=== PATIENT | female | born 1960 | race Caucasian/White ===

== ENCOUNTER 2018-11-21 16:18 | Inpatient (IN) ==
[2018-11-21 18:05] LABS: BASO# 0.03 X1000 (0.0-0.2); BASO% 0.3 % (0.0-0.8); EOS# 0.01 X1000 (0.0-0.7); EOS% 0.1 % (0.0-10.0); HEMATOCRIT 33.9 % (37.0-47.0); HEMOGLOBIN 10.4 g/dL (12.0-16.0); IMM GRAN# 0.02 X1000 (0.0-0.04); IMM GRAN% 0.2 % (0.0-0.5); LYMPH# 1.49 X1000 (1.2-3.4); LYMPH% 12.9 % (20.5-51.1); MCH 25.2 PG (27-31); MCHC 30.7 g/dL (33-37); MCV 82.1 FL (81-99); MONO# 0.54 X1000 (0.11-0.59); MONO% 4.7 % (1.7-9.3); MPV 10.7 FL (7.4-10.4); NEUT# 9.45 X1000 (1.4-6.5); NEUT% 81.8 % (42.2-75.2); PLT 342 X1000 (130-400); RBC 4.13 XMIL (4.2-5.4); RDW 15.2 % (11.5-14.5); WBC 11.54 X1000 (4.8-10.8)
[2018-11-21 18:14] LABS: BILIRUBIN URINE NEGATIVE (NEGATIVE); BLOOD URINE 1+ (NEGATIVE); CLARITY CLEAR (CLEAR); COLOR YELLOW; KETONE URINE 3+(Large) mg/dL (NEGATIVE); LEUKOCYTES URINE TRACE (NEGATIVE); NITRITE URINE NEGATIVE (NEGATIVE); PROTEIN URINE TRACE mg/dL (NEGATIVE); SP GRAVITY URINE 1.015; UROBILINOGEN URINE NORMAL
[2018-11-21 18:21] LABS: URINE SOURCE CLEAN CATCH
[2018-11-21 18:22] LABS: URINE BACTERIA 1+ /HFP; URINE CAST NONE SEEN /LPF; URINE CRYSTAL NONE SEEN /HPF; URINE EPITHELIAL CELLS >10 /HPF (<10); URINE RBC <10 /HPF (<10); URINE SMALL ROUND CELLS TRANSITIONAL PRESENT; URINE YEAST NONE SEEN /HPF
[2018-11-21 18:33] LABS: AGAP 23; ALBUMIN 4.5 g/dL (3.5-5.0); ALKALINE PHOSPHATASE 83 U/L (32-104); BUN 28 mg/dL (8-22); CALCIUM 10.3 mg/dL (8.8-10.2); CHLORIDE 99 mmol/L (98-107); COSMO 293; CREATININE 1.3 mg/dL (0.5-0.9); ESTIMATED GFR 42; GOT 15 U/L (10-30); GPT 16 U/L (10-36); POTASSIUM 5.6 mmol/L (3.5-5.1); SODIUM 132 mmol/L (136-145); TCO2 10 mmol/L (25-35); TOTAL BILIRUBIN < 0.15 mg/dL (0.20-1.00); TOTAL PROTEIN 8.1 g/dL (6.3-8.3)
[2018-11-21 18:35] LABS: GLUCOSE 518 mg/dL (70-104)
[2018-11-21] MEDS ORDERED: NS 1,000 ML IV ONE ×2 (19:19→20:43)
[2018-11-21] MEDS ORDERED: HUMULIN R IV ONE (19:27)
[2018-11-21] MEDS ORDERED: HUMULIN R (PARKWAY) 100 UNITS in NS 100 ML IV SCH (19:30)
[2018-11-21] MEDS ORDERED: NS 100 ML ONE (19:32)
[2018-11-21] MEDS ORDERED: HUMULIN R (PARKWAY) IV ONE (19:40)
[2018-11-21 20:22] LABS: BE -23.1 mmoll (-3.0-3.0); BLOOD TYPE ARTERIAL; HCO3-(ACT) 6.9 mmoll (20.0-26.0); METHB 1.1 % (0.0-1.5); O2(CT) 14.5 mL/dL (15.0-23.0); O2HB 95.5 % (95.0-99.0); PCO2(98.6) 22 mmHg (35-45); PO2(98.6) 108 mmHg (60-100); SAMPLE BLOOD; SAO2 97.5 % (95.0-100.0); THB 10.7 g/dL (11.5-17.4)
[2018-11-21 20:25] LABS: pH(98.6) 7.04 (7.35-7.45)
[2018-11-21 20:26] LABS: ALLEN TEST YES; MODALITY ROOM AIR
[2018-11-21] MEDS: HUMULIN R (PARKWAY) IV SCH ×2 (21:16→22:06)
[2018-11-21] MEDS ORDERED: ZOFRAN IV PRN (22:45)
[2018-11-21] MEDS ORDERED: MAGNESIUM SULFATE 2 GM/S.W.I. 2 GM/50 ML IVPB IV PRN (22:45)
[2018-11-21] MEDS ORDERED: POTASSIUM CHLORIDE 20% LIQUID PO PRN (22:45)
[2018-11-21] MEDS ORDERED: SODIUM PHOSPHATE 30 MMOL in D5W 250 ML IV PRN (22:45)
[2018-11-21] MEDS ORDERED: D50W SYRINGE IV PRN (22:45)
[2018-11-21] MEDS ORDERED: HUMULIN R 100 UNIT in NS 99 ML IV SCH (22:45)
[2018-11-21] MEDS ORDERED: TYLENOL PO PRN (22:45)
[2018-11-21] MEDS ORDERED: POTASSIUM CHLORIDE 20 MEQ/SWI 20 MEQ/100 ML IVPB IV PRN (22:45)
[2018-11-21] MEDS: NS 1,000 ML IV SCH (22:50)
[2018-11-21 23:27] LABS: CALCIUM 9.7 mg/dL (8.8-10.2); CREATININE 1.2 mg/dL (0.5-0.9); MAGNESIUM 1.7 mg/dL (1.5-2.7); PHOSPHORUS 3.3 mg/dL (2.7-4.5); POTASSIUM 4.5 mmol/L (3.5-5.1)
[2018-11-21] MEDS ORDERED: POTASSIUM CHLORIDE 40 MEQ/SWI 40 MEQ/100 ML IVPB IV PRN (23:45)
[2018-11-21] MEDS: POTASSIUM CHLORIDE 10% LIQUID PO PRN (23:55)
[2018-11-22] MEDS: D5 NS 1,000 ML IV SCH ×3 (00:59→16:50)
--- NOTE | 2018-11-22 01:13 | PROVIDER DOCUMENTATION ---
This chart was entered by Holli Beltran Scribe, acting as scribe for Martinez Do CRNP. HPI-General Adult - General Chief Complaint: High Blood Sugar Stated Complaint: HIGH BLOOD SUGAR Time Seen by Provider: 11/21/18 19:21 Source: patient Allergies/Adverse Reactions: Patient Allergies Allergy/AdvReac Type Severity Reaction Status Date / Time No Known Allergies Allergy Verified 11/21/18 17:11 Home Medications: Home Medication List Medication Instructions Recorded Confirmed Last Taken Type Aspirin 81 mg PO DAILY 12/13/15 01/22/17 01/22/17 History Clobazam [Onfi] 10 mg PO BID 12/13/15 01/22/17 01/22/17 History Lacosamide [Vimpat] 100 mg PO DAILY 12/13/15 01/22/17 01/22/17 History Levothyroxine [Synthroid] 88 mcg PO DAILY 12/13/15 01/22/17 01/22/17 History Insulin Glargine [Lantus] 20 units SQ HS 12/27/16 01/22/17 01/22/17 History Metformin HCl 1,000 mg PO BID 12/27/16 01/22/17 01/22/17 History Doxycycline 100 mg PO BID #14 capsule 01/22/17 Unknown Rx Hydrochlorothiazide 25 mg PO DAILY 01/22/17 01/22/17 01/22/17 History Levetiracetam 1,000 mg PO DAILY 01/22/17 01/22/17 01/22/17 History Losartan Potassium 50 mg PO DAILY 01/22/17 01/22/17 01/22/17 History Metronidazole [Flagyl] 500 mg PO TID #21 tablet 01/22/17 Unknown Rx Valacyclovir HCl [Valacyclovir] 1,000 mg PO TID #30 tablet 01/22/17 Unknown Rx Ciprofloxacin HCl [Cipro] 500 mg PO BID #14 tablet 05/06/17 Unknown Rx Phenazopyridine HCl [Pyridium] 100 mg PO TID #6 tablet 05/06/17 Unknown Rx Amoxicillin/Pot Clavulanate 875 mg PO Q12HR 10 Days #20 tab 08/12/18 Unknown Rx [Augmentin] - History of Present Illness -Gen Adult Nature of Presenting Problems: pt is 58 yr old female presenting with 1 day complaint of elevated BGL, headache, dry mouth. pt hx of IDDM uses insulin pump, unable to get blood sugar down today. Location of Pain/Injury: reports: head Pain Radiation: reports: no radiation Quality of Pain: reports: aching Severity: reports: mild Onset/Duration: reports: this morning Timing: reports: still present Context/Activities at Onset: reports: light activity Modifying Factors: improves with: other medication (insulin, metformin without relief) Associated Symptoms: reports: headaches, other (dry mouth, elevated BGL). d enies: dizziness, fever/chills Similar Symptoms Previously?: Yes Recently seen or treated by another doctor?: No Review of Systems - Adult - REVIEW OF SYSTEMS - ADULT Constitutional: reports: [place]. denies: chills, fever Eyes: reports: no symptoms reported Ears, Nose, Mouth & Throat: denies: ear pain, sinus problem, throat pain Cardiovascular: denies: chest pain, palpitations, syncope Respiratory: denies: cough, shortness of breath Gastrointestinal: denies: abdominal pain, diarrhea, nausea, vomiting Genitourinary: reports: no symptoms reported Musculoskeletal: denies: back pain, muscle aches, neck pain Integumentary: reports: no symptoms reported Neurological: reports: headache/migraines. denies: dizziness/vertigo Psychiatric: reports: no symptoms reported Endocrine: reports: increased thirst, polyuria, other (dry mouth) Hematologic/Lymphatic: reports: no symptoms reported Allergic/Immunologic: reports: no symptoms reported All Other Systems: Reviewed and Negative Past History - Adult - PAST MEDICAL HISTORY-ADULT Review of Records: reports: Old Records Reviewed, Nursing Assessment Review, Medications Reviewed, Social history reviewed & non-contributory. Major Childhood Illnesses: reports: denies history Cardiovascular: reports: HTN, hyperlipidemia Respiratory: reports: denies history Gastrointestinal: reports: denies history Obstetrical/Gynecological: reports: denies history Genitourinary: reports: denies history Musculoskeletal: reports: denies history Neurological: reports: Seizures/Epilepsy Endocrine/Immune: reports: Diabetes, thyroid disorder Other Conditions: reports: denies history - PRIOR SURGERIES/PROCEDURES Surgical/Procedure History: reports: hysterectomy, other (brain) - IMMUNIZATION STATUS Childhood Immunizations: See Nurse Assessment Flu Vaccine: See Nurse Assessment - FAMILY HISTORY Family History: reviewed, not pertinent - SOCIAL HISTORY Smoking: denies Substance Use: denies Living Situation: family Physical Exam-General - PHYSICAL EXAM-ADULT Initial Vital Signs Reviewed: Yes - CONSTITUTIONAL General Appearance: appears well, alert, no apparent distress - EYES Eyes: PERRL/EOMI - HEAD, EARS, NOSE, MOUTH & THROAT HENMT: normocephalic/atraumatic, other (dry oral mucosa) - NECK Neck: non-tender, full range of motion, supple, normal inspection - RESPIRATORY Respiratory: chest non-tender, lungs clear, normal breath sounds - CARDIOVASCULAR Cardiovascular: normal peripheral pulses, regular rate, rhythm, no edema - GASTROINTESTINAL (ABDOMEN) Abdominal Exam: normal bowel sounds, non tender, soft - LYMPHATIC Lymphatic: no adenopathy - MUSCULOSKELETAL Back Exam: normal inspection, no CVA tenderness, no vertebral tenderness Extremity: normal range of motion, non-tender, normal gait, normal inspection - SKIN Integumentary: normal color, normal turgor, warm/dry - NEUROLOGIC Neurologic: grossly normal, no motor/sensory deficits - PSYCHIATRIC Psych/Mental Status: normal mood/affect Progress - PLAN OF CARE/RESULTS Progress/Plan/Lab Results: Vital Signs - 8 hr 11/21/18 16:48 Temperature 98.3 F Pulse Rate 110 H Respiratory Rate 20 Blood Pressure 125/76 O2 Sat by Pulse Oximetry 100 Laboratory Results - last 24 hr 11/21/18 11/21/18 11/21/18 16:53 17:32 17:45 WBC 11.54 H RBC 4.13 L Hgb 10.4 L Hct 33.9 L MCV 82.1 MCH 25.2 L MCHC 30.7 L RDW Std Deviation 15.2 H Plt Count 342 MPV 10.7 H Immature Gran % (Auto) 0.2 Neut % (Auto) 81.8 H Lymph % (Auto) 12.9 L Cros[place] % (Auto) 4.7 Eos % (Auto) 0.1 Baso % (Auto) 0.3 Immature Gran # (Auto) 0.02 Neut # (Auto) 9.45 H Lymph # (Auto) 1.49 Crosby # (Auto) 0.54 Eos # (Auto) 0.01 Baso # (Auto) 0.03 Sodium Potassium Chloride Carbon Dioxide Anion Gap BUN Creatinine Estimated GFR/1.73 m2 BUN/Creatinine Ratio Glucose POC Glucose 495 H D Calculated Osmolality Calcium Total Bilirubin AST ALT Alkaline Phosphatase Total Protein Albumin Globulin Albumin/Globulin Ratio Urine Source CLEAN CATCH Urine Color YELLOW Urine Clarity CLEAR Urine pH 5.0 Ur Specific [place] 1.015 Urine Protein TRACE A Urine Ketones 3+(Large) A Urine Blood 1+ A Urine Nitrite NEGATIVE Urine Bilirubin NEGATIVE Urine Urobilinogen NORMAL Urine Microscopic RBC <10 Urine WBC TRACE A Urine Microscopic WBC 10-20 A Ur Epithelial Cells >10 A Urine Crystals NONE SEEN Small Round Cells TRANSITIONAL PRESENT Urine Bacteria 1+ Urine Casts NONE SEEN Urine Yeast NONE SEEN Urine Glucose 3+(500 mg/dL) A Acetone Level 11/21/18 11/21/18 11/21/18 17:45 17:45 20:01 WBC RBC Hgb Hct MCV MCH MCHC RDW Std Deviation Plt Count MPV Immature Gran % (Auto) Neut % (Auto) Lymph % (Auto) Cros[place] % (Auto) Eos % (Auto) Baso % (Auto) Immature Gran # (Auto) Neut # (Auto) Lymph # (Auto) [place] # (Auto) Eos # (Auto) Baso # (Auto) Sodium 132 L Potassium 5.6 H Chloride 99 Carbon Dioxide 10 L Anion Gap 23 BUN 28 H Creatinine 1.3 H Estimated GFR/1.73 m2 42 BUN/Creatinine Ratio 22 Glucose 518 H* POC Glucose 364 H Calculated Osmolality 293 Calcium 10.3 H Total Bilirubin < 0.15 L AST 15 ALT 16 Alkaline Phosphatase 83 Total Protein 8.1 Albumin 4.5 Globulin 4.0 Albumin/Globulin Ratio 1.0 Urine Source Urine Color Urine Clarity Urine pH Ur Specific [place] Urine Protein Urine Ketones Urine Blood Urine Nitrite Urine Bilirubin Urine Urobilinogen Urine Microscopic RBC Urine WBC Urine Microscopic WBC Ur Epithelial Cells Urine Crystals Small Round Cells Urine Bacteria Urine Casts Urine Yeast Urine Glucose Acetone Level SMALL A Orders Category Date Time Status FSBS [Finger Stick Blood Sugar (ED)] DIRECTED Care 11/21/18 17:13 Completed FSBS/Accucheck Result RTQ1H Care 11/21/18 19:52 Active ACETONE SERUM [CHEM] Stat Lab 11/21/18 17:45 Completed Blood Gas [ABG] [RESP] Routine Lab 11/21/18 20:01 Ordered CBC WITH DIFF [HEME] Stat Lab 11/21/18 17:45 Completed CMP [COMPREHENSIVE METABOLIC PANEL] [CHEM] Stat Lab 11/21/18 17:45 Completed URINE CULTURE [RM] Routine Lab 11/21/18 18:22 Ordered ua [URINALYSIS PL W/POSS RFLX CULT] [URINALYSIS] Stat Lab 11/21/18 17:32 Completed 0.9% Sodium Chloride Inj [Ns] 1,000 ml Med 11/21/18 19:19 Active IV 999 mls/hr 0.9% Sodium Chloride Inj [Ns] 100 ml Med 11/21/18 19:32 Discontinued .ROUTE As directed Insulin Human Regular ([place] [Humulin R ([place])] Med 11/21/18 19:40 Discontinued See Protocol IV NOW ONE Insulin Human Regular [Humulin R] Med 11/21/18 19:27 Discontinued 6 unit IV NOW ONE Result Diagrams: 11/21/18 17:45 11/21/18 17:45 - CONSULTS/PCP/HOSPITALIST Notification #1 *Consult/PCP/Hospitalist*: Dr Sanchez Time Discussed: 20:40 Reason/Comments: plan of care for pt admit Consult Disposition: Admit Departure - Departure Date of Disposition Decision: 11/21/18 Time of Disposition Decision: 20:41 DIAGNOSIS: DKA (diabetic ketoacidosis) Disposition: ADMITTED INPATIENT 09 Certified Medical Emergency: Emergent Condition: Stable Referrals and Follow-Ups: Edwin Brady MD [Primary Care Provider] - - Critical Care Note This patient required my direct & personal management of CC.: Yes Total Time (mins): 31 Critical Care Statement: This patient required my direct personal management to treat or rule out processes, the absence of which, could potentiallly result in sudden, clinically significant life or limb threatening deterioration. Attestation - Physician/ JRAETH Attestation Patient care was provided by Advanced Practice Provider:: Yes Advanced Practice Provider:: Martinez Do Advanced Practice Provider documentation review:: The Mid-level provider documentation, treatment plan and medical decision making was reviewed by the physician who agrees with all treatment and medical decision making by the [facility]. The physician spent face to face time with patient:: No Advanced Practice Provider documentation review:: Supervising physician onsite and consulted in the evaluation and care of this patient. The physician did not have a face to face encounter with the patient. This chart was documented by the indicated scribe, (Holli Beltran Scribe) and accurately reflects the services I performed and decisions made by me, Martinez Do CRNP, as attested by the provider's signature.
[2018-11-22 01:54] LABS: CALCIUM 9.6 mg/dL (8.8-10.2); CREATININE 1.1 mg/dL (0.5-0.9); MAGNESIUM 2.1 mg/dL (1.5-2.7); PHOSPHORUS 2.8 mg/dL (2.7-4.5); POTASSIUM 4.3 mmol/L (3.5-5.1)
[2018-11-22] MEDS: POTASSIUM CHLORIDE 10% LIQUID PO PRN (02:00)
[2018-11-22 04:55] LABS: BE -19.4 mmoll (-3.0-3.0); BLOOD TYPE ARTERIAL; HCO3-(ACT) 9.8 mmoll (20.0-26.0); METHB 1.2 % (0.0-1.5); O2(CT) 13.2 mL/dL (15.0-23.0); O2HB 94.5 % (95.0-99.0); PCO2(98.6) 20 mmHg (35-45); PO2(98.6) 155 mmHg (60-100); SAMPLE BLOOD; SAO2 98.8 % (95.0-100.0); THB 9.7 g/dL (11.5-17.4)
[2018-11-22 04:59] LABS: ALLEN TEST YES; MODALITY ROOM AIR; pH(98.6) 7.17 (7.35-7.45)
[2018-11-22 06:57] LABS: CALCIUM 9.2 mg/dL (8.8-10.2); CREATININE 1.1 mg/dL (0.5-0.9); MAGNESIUM 2.2 mg/dL (1.5-2.7); PHOSPHORUS 3.2 mg/dL (2.7-4.5); POTASSIUM 4.9 mmol/L (3.5-5.1)
[2018-11-22] MEDS: NS 1,000 ML IV SCH ×2 (07:13→15:04)
--- NOTE | 2018-11-22 08:37 | Diag Imaging Result Doc PS360 ---
EXAM: CHEST-PORTABLE INDICATION: dka TECHNIQUE: One view COMPARISON: None. FINDINGS: The lungs are grossly clear. There is no discrete pleural fluid collection or pneumothorax. The cardiomediastinal silhouette and central vasculature are grossly unremarkable. IMPRESSION: No evidence of acute pathology by plain radiograph. Electronically signed by Hong Sylvester 11/22/2018 8:34 AM
[2018-11-22 09:28] LABS: BASO# 0.02 X1000 (0.0-0.2); BASO% 0.1 % (0.0-0.8); EOS# 0.01 X1000 (0.0-0.7); EOS% 0.1 % (0.0-10.0); HEMATOCRIT 29.2 % (37.0-47.0); HEMOGLOBIN 9.4 g/dL (12.0-16.0); IMM GRAN# 0.05 X1000 (0.0-0.04); IMM GRAN% 0.4 % (0.0-0.5); LYMPH# 1.61 X1000 (1.2-3.4); MCH 26.2 PG (27-31); MCHC 32.2 g/dL (33-37); MCV 81.3 FL (81-99); MONO# 0.95 X1000 (0.11-0.59); MONO% 7.1 % (1.7-9.3); NEUT# 10.78 X1000 (1.4-6.5); NEUT% 80.3 % (42.2-75.2); PLT 313 X1000 (130-400); RBC 3.59 XMIL (4.2-5.4); RDW 15.3 % (11.5-14.5); WBC 13.42 X1000 (4.8-10.8)
[2018-11-22 09:37] LABS: HEMOGLOBIN A1C 6.8 % (4.8-6.0)
[2018-11-22 09:37] LABS: UR AMPHETAMINES QUAL NONE DETECTED (NONE DETECT); UR BARBITUATES QUAL NONE DETECTED (NONE DETECT)
[2018-11-22 09:38] LABS: UR BENZODIAZEPIN QUAL PRESUMPTIVE POSITIVE (NONE DETECT); UR CANNABINOIDS QUAL NONE DETECTED (NONE DETECT); UR COCAINE QUAL NONE DETECTED (NONE DETECT); UR METHADONE QUAL NONE DETECTED (NONE DETECT); UR METHAMPHETAMINE QUAL NONE DETECTED (NONE DETECT); UR OPIATES QUAL NONE DETECTED (NONE DETECT); UR OXYCODONE QUAL NONE DETECTED (NONE DETECT); UR PCP QUAL NONE DETECTED (NONE DETECT); UR PROPOXYPHENE QUAL NONE DETECTED (NONE DETECT); UR TCA QUAL NONE DETECTED (NONE DETECT)
[2018-11-22 09:45] LABS: CALCIUM 9.4 mg/dL (8.8-10.2); CREATININE 1.1 mg/dL (0.5-0.9); MAGNESIUM 2.2 mg/dL (1.5-2.7); PHOSPHORUS 1.6 mg/dL (2.7-4.5); POTASSIUM 3.9 mmol/L (3.5-5.1)
[2018-11-22 09:46] LABS: ACETAMINOPHEN < 1.2 ug/mL (10-30); SALICYLATES < 3.00 mg/dL (3-10)
[2018-11-22] MEDS ORDERED: POTASSIUM CHLORIDE 20 MEQ/SWI 20 MEQ/100 ML IVPB IV PRN (12:15)
--- NOTE | 2018-11-22 13:19 | EKG Report ---
Test Performed on : 11/22/2018 11:29:45 AM Test Reason : dka Blood Pressure : / mmHG Vent. Rate : 087 BPM Atrial Rate : 087 BPM P-R Int : 248 ms QRS Dur : 076 ms QT Int : 362 ms P-R-T Axes : 076 083 072 degrees QTc Int : 435 ms Sinus rhythm. with 1st degree AV block. Otherwise normal ECG No previous ECGs available Unconfirmed Result
[2018-11-22 13:59] LABS: CALCIUM 9.4 mg/dL (8.8-10.2); CREATININE 1.1 mg/dL (0.5-0.9); MAGNESIUM 2.2 mg/dL (1.5-2.7); PHOSPHORUS 1.6 mg/dL (2.7-4.5)
[2018-11-22 17:34] LABS: CALCIUM 9.3 mg/dL (8.8-10.2); CREATININE 1.1 mg/dL (0.5-0.9); MAGNESIUM 2.1 mg/dL (1.5-2.7); PHOSPHORUS 1.8 mg/dL (2.7-4.5); POTASSIUM 3.9 mmol/L (3.5-5.1)
--- NOTE | 2018-11-22 17:58 | HISTORY AND PHYSICAL ---
PRIMARY CARE PHYSICIAN: Dr. Brady. CHIEF COMPLAINT: Hyperglycemia. HISTORY OF PRESENT ILLNESS: Ms. Cameron is a 58-year-old female who presented to the ER yesterday evening with hyperglycemia. She was in her normal state of health, and around lunchtime she checked her blood sugar and it was noted to be greater than 500. She is on an insulin pump. She called her PCP, who instructed her to come to the ER. She reports not having any symptoms, no chest pain, shortness of breath, nausea, vomiting, fever, chills, dysuria, or diarrhea. When she got to the ER yesterday evening, she was noted to be in diabetic ketoacidosis with a significant bemtkedo-lwksa-[id number] acidosis. This was confirmed with a blood gas, which also revealed a lactic acid of 6.7. She was started on a DKA protocol and was admitted to the ICU. Again, no complaints with the exception of hyperglycemia, per the patient. PAST MEDICAL HISTORY: 1. Type 2 diabetes requiring insulin. 2. Significant seizure disorder. 3. Hypothyroidism. 4. Hyperlipidemia. PAST SURGICAL HISTORY: She has had exploratory brain surgery as well as implanted neurostimulator, and she has had a tubal ligation and hysterectomy. SOCIAL HISTORY: She denies tobacco, alcohol or drug use. FAMILY HISTORY: Noncontributory. REVIEW OF SYSTEMS: A 14-point review of systems was obtained and found to be negative with the exception of the HPI. ALLERGIES: No known drug allergies. HOME MEDICATIONS: Aspirin 81 mg daily, Neurontin 200 mg at bedtime, levetiracetam 1000 mg p.o. b.i.d., Metformin 1000 mg p.o. b.i.d., mirtazapine 15 mg daily, NovoLog insulin pump as directed, Clobazam 20 mg b.i.d., risperidone 1 daily, Crestor 40 mg daily, Synthroid 88 mcg daily, Vimpat 200 mg b.i.d. PHYSICAL EXAMINATION: VITAL SIGNS: Blood pressure is 107/62, heart rate 100, respiratory rate 13, O2 saturation 100% on room air, temperature 98.2. GENERAL: This is a frail, [id number] 58-year-old female lying in the hospital bed in no acute distress. NEUROLOGIC: She is awake, alert and oriented. Follows commands. No focal deficits. HEENT: Head is atraumatic and normocephalic. Pupils are equal, round and reactive to light. Oral mucosa is a bit dry. NECK: Trachea is midline. There is no JVD. CHEST: Clear to auscultation bilaterally. CV: Regular rate and rhythm. S1 and S2 is noted. GI: Soft, nondistended, nontender. Bowel sounds are active. EXTREMITIES: Trace edema. Pulses 1+ bilaterally. DIAGNOSTIC DATA: Chest x-ray is negative. WBCs 13.42, hemoglobin 9.4, hematocrit 29.2, platelet count 313. ABG on room air: pH of 7.17, CO2 of 20, O2 of 155, bicarbonate 9.8, lactate 0.7. Chemistry: Sodium 136, potassium 3.9, chloride 112. CO2 is 11, anion gap 13, BUN 21, creatinine 1.1, glucose 320. A1c is 6.8%. Phosphorus is 1.6, magnesium 2.2. UA does not show UTI. Toxicology is positive for benzodiazepines, acetone level small, acetaminophen and salicylate negative . ASSESSMENT/PLAN: 1. Diabetic ketoacidosis: Unclear as to etiology at this time, given her lack of symptomatology. Would have her look at her insulin pump. Will get the name of her janitor supervisor and get her to follow up with them regarding the function of the pump. In the meantime, she has been started on a diabetic ketoacidosis protocol. Continue insulin drip, fluids and electrolyte and volume management. Interestingly, her hemoglobin A1c was noted only to be 6.8%. 2. Seizure disorder: Stable. Continue home medications. 3. Anemia: Likely chronic disease related. The patient denies any blood loss. Will check iron studies and treat accordingly. 4. Hypothyroidism. Will check her TSH in the morning. Continue her home medications. Further recommendations to follow. Dictated by MERCEDES Mazariegos for Michael Sanchez MD cc: MERCEDES Mazariegos MD Bharat K. Vakharia, MD MTDD
[2018-11-22] MEDS: NEURONTIN PO SCH (21:04)
[2018-11-22] MEDS: KEPPRA PO SCH (21:04)
[2018-11-22] MEDS: VIMPAT PO SCH (21:05)
[2018-11-22 21:50] LABS: CALCIUM 9.2 mg/dL (8.8-10.2); CREATININE 1.1 mg/dL (0.5-0.9); MAGNESIUM 2.1 mg/dL (1.5-2.7); PHOSPHORUS 2.5 mg/dL (2.7-4.5); POTASSIUM 4.2 mmol/L (3.5-5.1)
[2018-11-23 02:30] LABS: CALCIUM 9.4 mg/dL (8.8-10.2); CREATININE 1.1 mg/dL (0.5-0.9); MAGNESIUM 2.1 mg/dL (1.5-2.7); POTASSIUM 4.3 mmol/L (3.5-5.1)
--- NOTE | 2018-11-23 02:50 | HISTORY AND PHYSICAL ---
ADDENDUM: Patient seen and examined by myself. Full note dictated and discussed with nurse practitioner. Patient denies any fevers, chills, cough, congestion, GI or issues. States that she simply checked her blood sugar and it was high. As it continued to raise she came to the ER. She was diagnosed with DKA. The patient does use an insulin pump at home. We will admit her to the hospital, treat in the usual fashion for DKA. We will hold her insulin pump for now and follow. cc: Michael Sanchez MD
[2018-11-23] MEDS ORDERED: SYNTHROID PO SCH ×2 (07:00→08:14)
[2018-11-23 07:02] LABS: BASO# 0.03 X1000 (0.0-0.2); BASO% 0.3 % (0.0-0.8); EOS# 0.02 X1000 (0.0-0.7); EOS% 0.2 % (0.0-10.0); HEMATOCRIT 29.3 % (37.0-47.0); HEMOGLOBIN 9.1 g/dL (12.0-16.0); IMM GRAN# 0.04 X1000 (0.0-0.04); IMM GRAN% 0.4 % (0.0-0.5); LYMPH% 19.4 % (20.5-51.1); MCH 25.3 PG (27-31); MCHC 31.1 g/dL (33-37); MCV 81.4 FL (81-99); MONO# 0.83 X1000 (0.11-0.59); MONO% 8.1 % (1.7-9.3); MPV 10.7 FL (7.4-10.4); NEUT# 7.38 X1000 (1.4-6.5); NEUT% 71.6 % (42.2-75.2); PLT 312 X1000 (130-400); RDW 15.7 % (11.5-14.5)
[2018-11-23] MEDS ORDERED: ZOFRAN IV PRN (07:19)
[2018-11-23] MEDS ORDERED: HUMULIN R (PARKWAY) 100 UNITS in NS 100 ML IV SCH (07:30)
[2018-11-23 07:35] LABS: CALCIUM 9.6 mg/dL (8.8-10.2); CREATININE 1.3 mg/dL (0.5-0.9); MAGNESIUM 2.1 mg/dL (1.5-2.7); POTASSIUM 3.9 mmol/L (3.5-5.1)
[2018-11-23] MEDS: ZOSYN 3.375 GM in NS 50 ML IV SCH ×3 (08:50→20:38)
[2018-11-23] MEDS ORDERED: INSULIN PEN NEEDLES ONE (09:29)
[2018-11-23] MEDS: RISPERDAL PO SCH (09:30)
[2018-11-23] MEDS: KEPPRA PO SCH ×2 (09:30→20:39)
[2018-11-23] MEDS: REMERON PO SCH (09:30)
[2018-11-23] MEDS: BASAGLAR SUBQ SCH ×2 (09:31→21:20)
[2018-11-23] MEDS: VIMPAT PO SCH ×2 (09:31→20:39)
[2018-11-23] MEDS: ASPIRIN PO SCH (09:31)
[2018-11-23] MEDS ORDERED: HUMALOG (PARKWAY) SUBQ SCH (13:15)
[2018-11-23] MEDS: HUMALOG (PARKWAY) SUBQ SCH ×3 (13:20→21:20)
[2018-11-23] MEDS: PATIENT'S OWN MED PO SCH ×3 (14:01→20:40)
[2018-11-23] MEDS: NEURONTIN PO SCH (20:39)
--- NOTE | 2018-11-23 21:51 | PROGRESS NOTE ---
DATE: 11/23/2018 SUBJECTIVE: Patient overall herself notes that she is feeling better. She did tolerate liquids last night. She is having no current nausea. No abdominal pain. OBJECTIVE: Temperature 98.7, pulse 80, BP 88/43 to 131/52.General: Patient currently is awake, alert. She is in no distress. She is pleasant to talk with but does not appear ill. HEENT: Normocephalic. Neck: Supple. Cardiovascular: Regular rate. Chest: Clear, nonlabored. No wheezing. Abdomen: Soft, nondistended, nontender. Extremities: Moves all extremities. ASSESSMENT: 1. Diabetic ketoacidosis. The patient's carbon dioxide actually increased. She was 10 and it increased to 16; currently, she is back down to 9. Last night, we did restart her insulin pump. It certainly begs the question that there is something wrong with her pump. She certainly may not be using it correctly and may not be using enough basal insulin. Regardless, we will again discontinue pump, place her on Lantus, and we will follow. Discussed with the patient that she may need to follow up outpatient with her software support engineer to evaluate her pump. 2. History of seizure disorder. 3. Anemia. 4. Hypothyroidism. cc: Michael Sanchez MD
[2018-11-24] MEDS: ZOSYN 3.375 GM in NS 50 ML IV SCH ×2 (01:24→09:01)
[2018-11-24] MEDS: HUMALOG (PARKWAY) SUBQ SCH ×2 (01:35→05:51)
[2018-11-24 08:44] LABS: HEMATOCRIT 30.8 % (37.0-47.0); HEMOGLOBIN 10.1 g/dL (12.0-16.0); MCH 25.8 PG (27-31); MCHC 32.8 g/dL (33-37); MCV 78.6 FL (81-99); MPV 10.2 FL (7.4-10.4); RBC 3.92 XMIL (4.2-5.4); RDW 15.6 % (11.5-14.5); WBC 6.04 X1000 (4.8-10.8)
[2018-11-24] MEDS: BASAGLAR SUBQ SCH (09:02)
[2018-11-24] MEDS: RISPERDAL PO SCH (09:02)
[2018-11-24] MEDS: KEPPRA PO SCH (09:02)
[2018-11-24] MEDS: VIMPAT PO SCH (09:02)
[2018-11-24] MEDS: ASPIRIN PO SCH (09:02)
[2018-11-24] MEDS: REMERON PO SCH (09:02)
[2018-11-24 09:07] LABS: ALBUMIN 3.5 g/dL (3.5-5.0); CALCIUM 9.1 mg/dL (8.8-10.2); CREATININE 1.2 mg/dL (0.5-0.9); POTASSIUM 3.5 mmol/L (3.5-5.1); TOTAL BILIRUBIN 0.2 mg/dL (0.20-1.00); TOTAL PROTEIN 6.9 g/dL (6.3-8.3)
[2018-11-24] MEDS: PATIENT'S OWN MED PO SCH (10:10)
[2018-11-24 12:15] VITALS: BP 111/70
--- NOTE | 2018-11-25 05:22 | DISCHARGE SUMMARY ---
ADMISSION DATE: 11/21/2018 DISCHARGE DATE: 11/24/2018 DISCHARGE DIAGNOSIS: 1. Diabetic ketoacidosis, resolved. 2. Diabetes with hyperglycemia in the hospital but with a very well controlled A1c at home. 3. Hyperthyroidism. 4. Hyperlipidemia. CONSULTATIONS: None. PROCEDURES: None. BRIEF HOSPITAL COURSE: The patient is a 58-year-old female who presented to the hospital in acute DKA with no instigating factor. She had no infection. She appears to be relatively compliant at home with an A1c at 6.1. She denies any change in her insulin. She was admitted to the hospital, placed on insulin drip. Quickly resolved and was then given her home insulin pump. Interestingly, after replacing her home insulin pump her carbon dioxide level dropped from 18 back down to 9, which is where it was on admission. We therefore stopped her insulin pump, place her back on subcutaneous Lantus and her A1c on discharge is back up to 16. DISPOSITION: Discussed with patient, I certainly feel though her pump may be malfunctioning. We will leave her pump off. We will continue Lantus until she can follow up outpatient with her bioinformatics programmer to evaluate her pump. She is currently having no nausea, vomiting, no abdominal pain and overall feels better. Greater than 30 minutes was spent in total discharge care. cc: Michael Sanchez MD
--- NOTE | 2018-11-25 08:12 | DISCHARGE SUMMARY ---
ADMISSION DATE: 11/21/2018 DISCHARGE DATE: 11/24/2018 ADMITTING DIAGNOSES: 1. Diabetic ketoacidosis. 2. Seizure disorder. 3. Anemia. 4. Hypothyroidism. DISCHARGE DIAGNOSES: 1. Diabetic ketoacidosis, resolved. 2. Seizure disorder. 3. Anemia. 4. Hypothyroidism. DIAGNOSTIC PROCEDURES AND FINDINGS: Chest x-ray on 11/22/2018 is negative exam. EKG on 11/22/2018 is sinus rhythm, first degree AV block, no acute ST or T abnormalities. HOSPITAL COURSE: Ms. Cameron is a 58-year-old female who presented with hyperglycemia. She has not had any complaints. She was checking her blood sugar, and it continued to be high. Once it reached 500, she called her PCP who instructed her to go to the ER for evaluation. In the ER, she was noted to be in DKA despite being on an insulin pump. She did not have any fever or chills, no chest pain. She was admitted for DKA protocol, and her blood sugar did improve nicely with an insulin drip. On day 2, we started back her insulin pump and stopped the insulin drip, and her blood sugar abe quickly which raised the question of functioning insulin pump. We subsequently stopped her insulin pump and started her on Lantus and will have her follow up with her PCP regarding functionality of her insulin pump. Her blood sugar did return back to acceptable levels. She does not have any symptoms or complaints, and she is now stable for discharge home. DISCHARGE MEDICATIONS: Synthroid 88 mcg daily, Vimpat 200 mg b.i.d., aspirin 81 mg daily, metformin 1000 mg p.o. b.i.d., Neurontin 200 mg at bedtime, risperidone 1 mg daily, Crestor 40 mg daily, Klonopin 20 mg b.i.d., Keppra 1000 mg p.o. b.i.d., mirtazapine 50 mg daily, Basaglar 10 units subcutaneously daily. DISCHARGE LABS: WBC is 6.04, hemoglobin 10.1, hematocrit 30.8, platelet count 314. Sodium is 137, potassium 3.5, chloride 110, CO2 is 18, anion gap is 9, BUN is 10, creatinine 1.2, glucose 288. Hemoglobin A1c is 6.8. Calcium 9.1. LFTs normal. DISCHARGE DIET: Diabetic. DISCHARGE ACTIVITY: Resume activity as tolerated. DISPOSITION AND OTHER DISCHARGE INSTRUCTIONS: The patient is discharged home to self care. She is to discontinue her insulin pump and continue Lantus as prescribed. She is to follow up with her starcher and tenter range feeder regarding her insulin pump. She is to return to the ER or call 911 for any complaints or concerns. All questions answered. Discharge time greater than 35 minutes. Dictated by MERCEDES Mazariegos for Michael Sanchez MD cc: MERCEDES Mazariegos MD Bharat K. Vakharia, MD
== END 2018-11-24 14:35 | disposition home or self-care (01) | DRG 919 ==
LOC: P.ED 16:18 → P.ICU 22:09
PROVIDERS: ATTEND Family Medicine
CPT/HCPCS: 71010; 71045; 80048; 80053; 80104; 80196; 80301; 80305; 80307; 80320; 80324; 80329; 81001; 82003; 82009; 82055; 82550; 82805; 82948; 83036; 83605; 83735; 84100; 84484; 85025; 85027; 87088; 93005; 96360; 99285; 99291; A9270; G0431; G0434; G0477; G0480; G6038; G6039; G6040; J1815; J2405; J2543; J3475; J3480; J7030; J7042; XXXXX

== ENCOUNTER 2019-08-23 01:28 | Inpatient (IN) ==
[2019-08-22 18:55] LABS: BASO# 0.02 X1000 (0.0-0.2); BASO% 0.3 % (0.0-0.8); EOS# 0.03 X1000 (0.0-0.7); EOS% 0.4 % (0.0-10.0); HEMATOCRIT 29.7 % (37.0-47.0); HEMOGLOBIN 9.4 g/dL (12.0-16.0); LYMPH# 1.64 X1000 (1.2-3.4); MCH 26.2 PG (27-31); MCHC 31.6 g/dL (33-37); MCV 82.7 FL (81-99); MONO# 0.77 X1000 (0.11-0.59); MONO% 10.3 % (1.7-9.3); MPV 10.1 FL (7.4-10.4); NEUT# 4.99 X1000 (1.4-6.5); PLT 252 X1000 (130-400); RBC 3.59 XMIL (4.2-5.4); RDW 16.1 % (11.5-14.5); WBC 7.45 X1000 (4.8-10.8)
[2019-08-22 19:22] LABS: URINE SOURCE CLEAN CATCH
--- NOTE | 2019-08-22 19:27 | Diag Imaging Result Doc PS360 ---
EXAM: CHEST-PORTABLE INDICATION: ABD PAIN TECHNIQUE: One view COMPARISON: 11/22/2018 FINDINGS: The lungs are grossly clear. There is no discrete pleural fluid collection or pneumothorax. The cardiomediastinal silhouette and central vasculature are grossly unremarkable. IMPRESSION: No evidence of acute pathology by plain radiograph. Electronically signed by Hong Sylvester 08/22/2019 7:25 PM
--- NOTE | 2019-08-22 19:27 | Diag Imaging Result Doc PS360 ---
EXAM: KUB ABDOMEN INDICATION: ABD PAIN TECHNIQUE: One view COMPARISON: None. FINDINGS: There is increased stool in the colon suggesting possible mild constipation. There is no obstructive bowel pattern. There is no evidence of large volume free abdominal gas. There is no evidence of organomegaly. IMPRESSION: Possible mild constipation. Electronically signed by Hong Sylvester 08/22/2019 7:24 PM
[2019-08-22 19:29] LABS: AMYLASE 269 U/L (20-200)
[2019-08-22 19:30] LABS: LIPASE 556 U/L (13-60)
[2019-08-22 19:30] LABS: BILIRUBIN URINE NEGATIVE (NEGATIVE); BLOOD URINE SMALL (NEGATIVE); COLOR YELLOW; GLUCOSE URINE >1000 mg/dL (NEGATIVE); KETONE URINE 40 mg/dL (NEGATIVE); LEUKOCYTES URINE MODERATE (NEGATIVE); NITRITE URINE POSITIVE (NEGATIVE); PROTEIN URINE 50 mg/dL (NEGATIVE); SP GRAVITY URINE 1.021; TURBIDITY URINE CLEAR (CLEAR); UROBILINOGEN URINE NORMAL (NORMAL)
[2019-08-22 19:31] LABS: UR EPITHELIAL CELLS <10 /HPF (<10); URINE BACTERIA 4+ /HPF; URINE RBC <10 /HPF (<10); URINE WBC TNTC /HPF (<10)
[2019-08-22 19:39] LABS: FREE T4 2.45 ng/dL (0.93-1.70)
[2019-08-22 19:40] LABS: ALB/GLOB RATIO 1.3; CALCIUM 9.8 mg/dL (8.8-10.2); CREATININE 1.5 mg/dL (0.5-0.9); MAGNESIUM 1.9 mg/dL (1.5-2.7); POTASSIUM 5.5 mmol/L (3.5-5.1); TOTAL BILIRUBIN 0.2 mg/dL (0.20-1.00)
[2019-08-22 19:40] LABS: ALLEN TEST YES; BE -9.5 mmoll (-3.0-3.0); BLOOD TYPE ARTERIAL; HCO3-(ACT) 17.5 mmoll (20.0-26.0); METHB 1.4 % (0.0-1.5); O2(CT) 13.8 mL/dL (15.0-23.0); O2HB 96.5 % (95.0-99.0); PCO2(98.6) 29 mmHg (35-45); PO2(98.6) 121 mmHg (60-100); SAMPLE BLOOD; SAO2 98.8 % (95.0-100.0); pH(98.6) 7.33 (7.35-7.45)
[2019-08-22 19:41] LABS: MODALITY ROOM AIR
--- NOTE | 2019-08-22 19:41 | HISTORY AND PHYSICAL ---
CHIEF COMPLAINT: Nausea vomiting and diarrhea. HISTORY OF PRESENT ILLNESS: Ms. Cameron is a 58-year-old white female patient complaining of vague abdominal pain. The patient does have nausea and vomiting going on for last 2 to 3 days. The patient vomited at least 3 to 4 times a day. She also had some diarrhea, vague abdominal pain. The patient was feeling weak. The patient is very vague and poor historian. No high-grade fever. The patient does have some chills. No nausea or vomiting. The patient had diarrhea. No blood or mucus in the stool. No abdominal distention. Denied dysuria or hematuria. No unusual cough, expectoration, or hemoptysis. No runny nose, stuffy nose. Dull headache. The patient had a unquantified weight loss. I evaluated her in the office. The patient was weak, feeling lethargic. I was concerned about her nausea vomiting and chance of hypoglycemia and I decided to admit the patient for further care. The patient does have insulin pump. No hypothyroidism. She denied any episode of major hypoglycemia. No recent seizure-type episode. No dysphagia or odynophagia. ALLERGIES: No known drug allergy. PAST MEDICAL HISTORY: Significant for hypothyroidism longstanding diabetes mellitus, hypothyroidism, seizure disorder, hypertension, gastritis, history suggestive of peripheral neuropathy, mood disorder, hyperlipidemia. PERSONAL HISTORY: Single. Nonsmoker. Denied alcohol or substance abuse. Independent in activities of daily living. FAMILY HISTORY: Noncontributory. REVIEW OF SYSTEMS: As per HPI. The patient does feel depressed at times. At times, mood swings. No leg swelling. The patient does have numbness and tingling in the feet patient is slow to response. PHYSICAL EXAMINATION: GENERAL: Middle-aged white female patient in mild distress. VITAL SIGNS: Blood pressure 118/72, pulse 76, respiration 18, temperature 98 degrees. SKIN: Senile turgor. HEENT: Head atraumatic, normocephalic. [place] conjunctivae. Anicteric sclerae. Extraocular muscle movement normal. Fundus cannot be penetrated. Good oral hygiene. No tonsillopharyngeal congestion or exudate. Ears and nose benign. NECK: Supple. No JVD, thyromegaly or lymphadenopathy. CHEST: Bibasilar crepitation. No rales. CARDIOVASCULAR: S1 and S2 heard. A 2/6 systolic murmur at the apex. No gallop or thrill. ABDOMEN: Soft, globular. Bowel sounds present. Mild tenderness in the epigastrium and left lower quadrant. No guarding or rigidity. EXTREMITIES: No cyanosis, clubbing. No acute DVT. MANAGER IMAGING: Alert, awake able to move all 4 limbs. MUSCULOSKELETAL: The patient was able to move all 4 limbs. CONSIDERATION: Patient admitted with nausea, vomiting, diarrhea, vague abdominal pain. Most likely gastroenteritis. Other consideration gastritis and gastroparesis, uncontrolled diabetes mellitus. Her other problems are hypothyroidism, hypertension mood disorder. PLAN: I will admit the patient. IV hydration. Close observation. We will check appropriate labs. Overall plan discussed at length with the patient. We will check appropriate lab and x- ray. Patient understood and agreed. cc: Edwin Brady MD
[2019-08-22 19:55] LABS: TSH 0.01 uIUmL (0.27-4.20)
[2019-08-22] MEDS: NS 1,000 ML IV SCH (19:59)
[2019-08-22] MEDS: HUMALOG SUBQ SCH (20:02)
[2019-08-22 20:24] LABS: HEMOGLOBIN A1C 7.7 % (4.8-6.0)
[2019-08-22] MEDS: PROTONIX IV SCH (20:48)
[2019-08-22] MEDS: ROCEPHIN 1 GM in NS 50 ML IV SCH (20:49)
[2019-08-22] MEDS: LOVENOX SUBQ SCH (20:49)
--- NOTE | 2019-08-22 21:43 | Diag Imaging Result Doc PS360 ---
EXAM: CT HEAD W/O CONTRAST INDICATION: ams TECHNIQUE: This exam was performed using automated exposure control, adjustment of mA or kV according to patient size, and/or use of iterative reconstruction technique. COMPARISON: None. FINDINGS: There are a few small chronic appearing lacunar infarcts versus Virchow-Lloyd spaces in the periventricular white matter of the right parietal lobe and the basal ganglia bilaterally. There is no definite acute infarct given the limited sensitivity of CT versus MRI. There is no discrete intracranial mass, mass effect, or intracranial hemorrhage. There are a few mo holes in the skull. Surrounding soft tissues and bony structures are essentially unremarkable, otherwise. IMPRESSION: Chronic appearing changes as described. No definite acute intracranial pathology by CT. Electronically signed by Hong Sylvester 08/22/2019 9:41 PM
[~2019-08-23 01:28] MED LIST: NS 1,000 ML IV SCH; ZOFRAN IV PRN
[2019-08-23] MEDS: NS 1,000 ML IV SCH ×3 (02:37→11:12)
[2019-08-23] MEDS ORDERED: HUMULIN R IV ONE ×2 (02:40→05:04)
[2019-08-23] MEDS ORDERED: D50W SYRINGE IV PRN (02:40)
[2019-08-23] MEDS ORDERED: NS 1,000 ML IV ONE (03:11)
[2019-08-23] MEDS: HUMULIN R 100 UNIT in NS 100 ML IV SCH (03:33)
[2019-08-23 04:25] LABS: CALCIUM 9.4 mg/dL (8.8-10.2); CREATININE 1.5 mg/dL (0.5-0.9); PHOSPHORUS 4.4 mg/dL (2.7-4.5); POTASSIUM 4.9 mmol/L (3.5-5.1)
[2019-08-23] MEDS ORDERED: VANCOMYCIN 1 GM/NS 1 GM/250 ML IVPB IV ONE (05:02)
[2019-08-23] MEDS: ZOSYN 3.375 GM in NS 50 ML IV SCH ×4 (05:15→22:38)
[2019-08-23] MEDS ORDERED: LEVOPHED 8 MG in D5 1/2 NS 250 ML IV SCH (07:00)
--- NOTE | 2019-08-23 07:16 | EKG Report ---
Test Performed on : 08/23/2019 04:07:50 AM Test Reason : NO EKG ORDER FOR MUSE Blood Pressure : / mmHG Vent. Rate : 134 BPM Atrial Rate : 134 BPM P-R Int : 162 ms QRS Dur : 080 ms QT Int : 378 ms P-R-T Axes : 074 088 067 degrees QTc Int : 564 ms Sinus tachycardia. Nonspecific ST abnormality Abnormal ECG When compared with ECG of 22-NOV-2018 11:29, [place] interval has decreased Vent. rate has increased BY [address] now depressed in Lateral leads Nonspecific T wave abnormality no longer evident in Anterior leads Confirmed by Sung FLORES, Bernabe Gomez ([id number]) on 08/26/2019 9:26:09 AM
--- NOTE | 2019-08-23 07:28 | Diag Imaging Result Doc PS360 ---
EXAM: CT ABDOMEN/PELVIS W/O CONTRAST 08/23/2019 HISTORY: DKA TECHNIQUE: This exam was performed using automated exposure control, adjustment of mA or kV according to patient size, and/or use of iterative reconstruction technique. COMMENT: There are no previous studies available for comparison. There is no evidence of acute disease in the visualized portion of the chest. There is a fair amount of motion artifact however. The spleen is not enlarged. The adrenal glands are within normal limits. The liver is grossly normal in appearance given the lack of contrast. There are no apparent gallstones. There is no evidence of nephrolithiasis or hydronephrosis. There is no evidence of bowel obstruction. There is gas distending portions of the colon and small bowel, there is no evidence of mural thickening or mucosal edema. There is some stool in the ascending colon. There is no evidence of appendicitis. The abdominal aorta is not distended. There are a few calcifications in the abdominal aorta. There is a fairly large amount of stool in the rectum. There is a Andrew catheter in the bladder. This is presumably responsible for the air-fluid level in the bladder. No free fluid is present. The regional skeleton appears to be intact. IMPRESSION: Mild constipation. No evidence of acute disease. Electronically signed by Michael Donnelly 08/23/2019 7:26 AM
--- NOTE | 2019-08-23 07:40 | PROGRESS NOTE ---
DATE: 08/23/2019 SUBJECTIVE: Ms. Cameron, a 58-year-old white female patient admitted with vague abdominal pain, nausea and vomiting. The patient was found to have a UTI. Overnight, her clinical condition deteriorated. Her blood sugar was very high. Patient found to have significant UTI. Her blood pressure dropped. The patient was started on insulin drip. The patient is very vague and poor historian. She was not taking her medication properly. The patient had CT scan of the brain done, which did reveal chronic appearing changes, but no acute intracranial pathology. No high- grade fever. She denied any chest pain. The patient did have nausea, vomiting, and diarrhea at home. No seizure-type episode. Her history part was very limited. OBJECTIVE: Vital Signs: Noted. This morning, the patient was tachycardic. Blood pressure was low. Dry oral mucosa. Neck: Supple. No JVD. Lungs: Bilateral good air entry present. Few basal crepitations. Cardiovascular System: S1 and S2. Tachycardia. Abdomen: Soft, mild diffuse tenderness. No guarding or rigidity. Extremities: No cyanosis, clubbing. No acute DVT. Central Nervous System: Alert, awake. Answering questions fair. Able to move all 4 limbs. DIAGNOSTIC STUDIES: Chest x-ray done on admission, no evidence of acute pathology. Abdominal x-ray revealed possible mild constipation. No obstructive bowel pattern. Patient had CT scan of the abdomen done, which revealed mural thickening of small bowel loops suggesting antritis or vascular insufficiency. No free air or fluid. No bowel obstruction. No obstructive uropathy. The patient's amylase and lipase were elevated suggestive of pancreatitis. Urinalysis did reveal significant UTI. Acetone was small. In the electrolytes, anion gap was 34, which went up, and her blood sugar went up to 661. Sodium 133. Her blood gas, pH 7.33, pCO2 of 29, PO2 was 121. This was done on room air. REASON FOR ADMISSION: Patient admitted with abdominal pain, nausea, vomiting and diarrhea. The initial pH was normal. CONSIDERATION: Early DKA versus hyperosmolar state, sepsis, pancreatitis, UTI. CT scan did reveal possible ischemic bowel. The patient seems to be developing hypotension. The patient is acutely ill. I am going to get opinion of instructional technology specialist. We will refer her to surgeon and hand turner. Her clinical condition discussed with her sister who is next of kin. Overall prognosis is fair to guarded. The patient is on DKA protocol. The patient is on broad- spectrum antibiotics, which we will continue, fluid resuscitation, insulin drip, GI prophylaxis. I gave her IV Keppra for her seizure. cc: Edwin Brady MD
[2019-08-23 08:16] LABS: BASO# 0.01 X1000 (0.0-0.2); BASO% 0.1 % (0.0-0.8); EOS# 0.01 X1000 (0.0-0.7); EOS% 0.1 % (0.0-10.0); HEMATOCRIT 29.2 % (37.0-47.0); HEMOGLOBIN 8.9 g/dL (12.0-16.0); IMM GRAN# 0.04 X1000 (0.0-0.04); IMM GRAN% 0.3 % (0.0-0.5); LYMPH# 0.75 X1000 (1.2-3.4); LYMPH% 5.7 % (20.5-51.1); MCHC 30.5 g/dL (33-37); MCV 85.4 FL (81-99); MONO# 1.11 X1000 (0.11-0.59); MONO% 8.5 % (1.7-9.3); MPV 10.8 FL (7.4-10.4); NEUT# 11.15 X1000 (1.4-6.5); NEUT% 85.3 % (42.2-75.2); PLT 272 X1000 (130-400); RBC 3.42 XMIL (4.2-5.4); RDW 16.4 % (11.5-14.5); WBC 13.07 X1000 (4.8-10.8)
[2019-08-23 08:37] LABS: BANDS 3 % (0-1); LYMPHS 8 % (21-51); SEGS 87 % (42-75)
[2019-08-23 08:38] LABS: HYPOCHROM 1+; LARGE PLATELETS OCCASIONAL
[2019-08-23 09:23] LABS: CALCIUM 9.1 mg/dL (8.8-10.2); CREATININE 1.6 mg/dL (0.5-0.9); MAGNESIUM 1.7 mg/dL (1.5-2.7); PHOSPHORUS 2.3 mg/dL (2.7-4.5); POTASSIUM 4.2 mmol/L (3.5-5.1)
[2019-08-23 09:46] LABS: AMYLASE 149 U/L (20-200); CK PROFILE 83 U/L (24-173)
[2019-08-23 09:54] LABS: LIPASE 474 U/L (13-60)
[2019-08-23] MEDS: PROTONIX IV SCH (11:13)
[2019-08-23] MEDS: KEPPRA 500 MG/NS 500 MG/100 ML IVPB IV SCH ×2 (11:13→18:44)
[2019-08-23] MEDS: SODIUM CHLORIDE 0.9% INJ SCH (11:13)
[2019-08-23 11:18] LABS: ALLEN TEST YES; BE -15.5 mmoll (-3.0-3.0); BLOOD TYPE ARTERIAL; HCO3-(ACT) 12.8 mmoll (20.0-26.0); METHB 1.3 % (0.0-1.5); O2(CT) 12.8 mL/dL (15.0-23.0); O2HB 96.6 % (95.0-99.0); PCO2(98.6) 23 mmHg (35-45); PO2(98.6) 102 mmHg (60-100); SAMPLE BLOOD; SAO2 99.2 % (95.0-100.0); THB 9.3 g/dL (11.5-17.4); pH(98.6) 7.25 (7.35-7.45)
[2019-08-23 11:20] LABS: MODALITY ROOM AIR
[2019-08-23] MEDS: HUMALOG SUBQ SCH ×3 (11:26→21:28)
[2019-08-23 11:40] LABS: CALCIUM 8.8 mg/dL (8.8-10.2); CREATININE 1.4 mg/dL (0.5-0.9); MAGNESIUM 1.7 mg/dL (1.5-2.7); PHOSPHORUS 2.1 mg/dL (2.7-4.5); POTASSIUM 4.4 mmol/L (3.5-5.1)
[2019-08-23] MEDS: D5 1/2 NS 1,000 ML IV SCH ×2 (12:57→22:37)
[2019-08-23 15:32] LABS: URINE SOURCE CATH
[2019-08-23 15:57] LABS: BILIRUBIN URINE NEGATIVE (NEGATIVE); BLOOD URINE SMALL (NEGATIVE); COLOR YELLOW; GLUCOSE URINE TRACE mg/dL (NEGATIVE); KETONE URINE 60 mg/dL (NEGATIVE); LEUKOCYTES URINE LARGE (NEGATIVE); NITRITE URINE NEGATIVE (NEGATIVE); PROTEIN URINE 50 mg/dL (NEGATIVE); SP GRAVITY URINE 1.017; TURBIDITY URINE HAZY (CLEAR); UROBILINOGEN URINE NORMAL (NORMAL)
[2019-08-23 16:01] LABS: UR EPITHELIAL CELLS <10 /HPF (<10); URINE BACTERIA NEGATIVE /HPF; URINE RBC <10 /HPF (<10); URINE WBC TNTC /HPF (<10)
[2019-08-23 16:21] LABS: URINE CASTS NONE SEEN; URINE CRYSTALS NONE SEEN; URINE YEAST NONE SEEN
--- NOTE | 2019-08-23 17:54 | PROGRESS NOTE ---
DATE: 08/23/2019 SUBJECTIVELY: Ms. Cameron is doing better. The patient is more alert, awake. She denied any chest pain or palpitations. Complaining of mild sore throat. No nausea or vomiting. OBJECTIVE: Vital signs: Noted. Last temperature 99.1 degrees, blood pressure 96/52, heart rate was 100, respiratory rate was 15; this was done around 11:39. Neck: Supple. No JVD. Lungs: Bibasilar crepitations. Heart: S1 and S2 heard. Abdomen: Soft, nontender. Bowel sounds present. OUTSOLE CUTTER MACHINE: Alert, awake. Able to move all 4 limbs. LAB DATA: Reviewed. Her last hemoglobin 8.9, hematocrit 29.2, WBC count 13.07, platelets 272,000. Blood gas 7.25, pCO2 23, PO2 102. Electrolytes: BUN 29, creatinine 1.4, anion gap was 25, phosphorus was 2.1. ASSESSMENT AND PLAN: The patient is on diabetic ketoacidosis protocol. Clinically her mentation is improving. Blood sugar is also better. The patient is still on insulin drip because of increased anion gap. The patient is also on broad-spectrum antibiotics. CT scan read by our radiologist revealed mild constipation. No evidence of acute disease. We will continue current treatment. Close observation. Overall prognosis fair to guarded. Appreciate Dr. Dmitri Bernabe's and Dr. Cerna's help managing the patient. cc: Edwin Brady MD
[2019-08-23] MEDS: LOVENOX SUBQ SCH (18:07)
[2019-08-23 18:10] LABS: CALCIUM 8.8 mg/dL (8.8-10.2); CREATININE 1.3 mg/dL (0.5-0.9); MAGNESIUM 1.6 mg/dL (1.5-2.7); PHOSPHORUS 2.7 mg/dL (2.7-4.5)
--- NOTE | 2019-08-23 19:16 | GENERAL SURGERY CONSULTATION ---
DATE: 08/23/2019 REQUESTING PHYSICIAN: Dr. Brady. HISTORY OF PRESENT ILLNESS: This is a 58-year-old female whom I saw in the emergency room at the request of Dr. Brady. She reports to me her chief complaint is nausea for the last 3 days, especially with eating. She also reports dry mouth and sore throat. She denies abdominal pain during my exam and says her abdomen is not been hurting recently. She says she has been constipated. Her last normal bowel movement was 3 days ago, but she did have some diarrhea yesterday and today. She does feel weak and rundown. PAST MEDICAL HISTORY: Diabetes, seizures, hypothyroidism, hypercholesterolemia, hypertension, mood disorder, gastritis. PAST SURGICAL HISTORY: A brain surgery for seizure disorder. ALLERGIES: No known drug allergies. SOCIAL HISTORY: Negative for tobacco, alcohol or illicit drug use. FAMILY HISTORY: Reviewed and noncontributory. HOME MEDICATIONS: Synthroid, Vimpat, aspirin, metformin, gabapentin, risperidone, rosuvastatin, clobazam, levetiracetam, mirtazapine and hydroxyzine. REVIEW OF SYSTEMS: Ten systems reviewed and negative except as noted above. PHYSICAL EXAM: At 8:15 this morning her temperature was 99.2, pulse 105, respirations 18, blood pressure 98/55, O2 saturation 100%.General: Weak-appearing female in no acute distress. Neurologic: Alert and oriented x3. Moves all extremities equally and well. Musculoskeletal: Moves all extremities equally and well. HEENT: Normocephalic, atraumatic. Extraocular muscles intact. Pupils equal, round and reactive to light. Sclerae anicteric. Neck: Supple. No thyromegaly. CV: Tachycardic and regular. Respiratory: Bilateral breath sounds. No increased work of breathing. GI: Soft, mildly tender in the epigastrium. No rebound or guarding. No organomegaly or mass. No hernias. Extremities: No clubbing, cyanosis, or edema. Skin: Warm and dry. No rash. LABORATORY: White blood cell count 13,000, hemoglobin 8.9, hematocrit 29, platelet count 272. ABG: pH of 7.33, pCO2 of 29, PaO2 of 121, bicarb of 17. Base deficit is -5. Sodium 141, potassium 4.2, chloride 103, CO2 7, BUN 31, creatinine 1.6, glucose 214. Amylase 269, lipase 556, glucose 521. Serum acetone level is positive for small acetones. Urinalysis with [id number]- count white blood cells, 4+ bacteria and positive nitrite. IMAGING: Abdominal x-ray shows mild constipation. Chest x-ray shows no acute pathology. Abdominal/pelvic CT scan done this morning shows mild constipation but no evidence of acute disease. ASSESSMENT AND PLAN: A 58-year-old female with nausea, malaise, diarrhea as well as constipation, epigastric tenderness and laboratory evaluation remarkable for elevated pancreatic enzymes and hyperglycemia and acidosis. Overall, I think this represents diabetic ketoacidosis with mild pancreatitis. I do not see an acute surgical indication at this time. We will follow along. We will allow her to have a clear liquid diet. cc: MD Edwin Jalloh MD
[2019-08-23] MEDS: ROCEPHIN 1 GM in NS 50 ML IV SCH (19:26)
[2019-08-23 20:03] LABS: CALCIUM 8.8 mg/dL (8.8-10.2); CREATININE 1.2 mg/dL (0.5-0.9); MAGNESIUM 1.5 mg/dL (1.5-2.7); PHOSPHORUS 2.5 mg/dL (2.7-4.5); POTASSIUM 3.7 mmol/L (3.5-5.1)
--- NOTE | 2019-08-23 23:33 | CONSULTATION ---
DATE OF CONSULTATION: 08/23/2019 CHIEF COMPLAINT: Nausea and vomiting with diarrhea. HISTORY OF PRESENT ILLNESS: This is a 58-year-old white female with a complaint of abdominal pain with vomiting over the past few days. She also has had some diarrhea with weakness and weight loss noted. ALLERGIES: No known drug allergies. PAST MEDICAL HISTORY: Hypothyroidism, diabetes mellitus, seizure disorder, hypertension, gastritis, mood disorder, hyperlipidemia. SOCIAL HISTORY: Single. Nonsmoker. Denies alcohol or substance abuse. FAMILY HISTORY: Noncontributory. REVIEW OF SYSTEMS: A 10-point review of systems was obtained and the pertinent is listed within the HPI, otherwise noncontributory. PHYSICAL EXAMINATION: GENERAL: This is a 58-year-old female resting in bed quietly at the present time in no acute distress at the present time. VITAL SIGNS: Temperature 99.1, blood pressure 96/52, pulse 100, respirations 15, O2 saturation 100% on room air. HEENT: Head is atraumatic, normocephalic. [place] and moist conjunctiva. NECK: Supple. Trachea midline. RESPIRATORY: Decreased breath sounds bilaterally. CARDIOVASCULAR: S1 and S2 auscultated with systolic murmur appreciated. ABDOMEN: Soft. Bowel sounds present in all 4 quadrants. Mild tenderness in the epigastrium and left lower quadrant. EXTREMITIES: Without edema, clubbing or cyanosis. LABORATORY DATA: PH 7.25. PO2 of 23. Oxyhemoglobin 92.6. Sodium 141. Potassium 4.4. Chloride 106. White blood cells 13.07. Hematocrit 8.9. Hemoglobin 29.2. Platelets 272. ASSESSMENT AND PLAN: 1. Nausea, vomiting, diarrhea. Continue IV hydration as prescribed. 2. Hypoglycemia. We will continue to monitor with fingerstick blood sugars. Treat accordingly. 3. Respiratory distress. We will continue to monitor with chest x-ray, ABG, labs and continue antibiotics as prescribed. We will use supplemental O2 as needed. Thank you for the courtesy of this consult. Dictated by MERCEDES Hooper for Morgan Cerna MD cc: MERCEDES Hooper MD Bharat K. Vakharia, MD
[2019-08-24 00:29] LABS: CALCIUM 8.8 mg/dL (8.8-10.2); CREATININE 1.2 mg/dL (0.5-0.9); MAGNESIUM 1.5 mg/dL (1.5-2.7); POTASSIUM 3.5 mmol/L (3.5-5.1)
[2019-08-24 04:32] LABS: CALCIUM 8.4 mg/dL (8.8-10.2); CREATININE 1.1 mg/dL (0.5-0.9); MAGNESIUM 1.5 mg/dL (1.5-2.7); PHOSPHORUS 3.2 mg/dL (2.7-4.5); POTASSIUM 3.2 mmol/L (3.5-5.1)
[2019-08-24] MEDS: ZOSYN 3.375 GM in NS 50 ML IV SCH ×4 (04:38→23:08)
[2019-08-24 04:39] LABS: ALLEN TEST YES; BE -5.5 mmoll (-3.0-3.0); BLOOD TYPE ARTERIAL; HCO3-(ACT) 20.7 mmoll (20.0-26.0); METHB 0.8 % (0.0-1.5); O2(CT) 11.8 mL/dL (15.0-23.0); O2HB 97.3 % (95.0-99.0); PCO2(98.6) 30 mmHg (35-45); PO2(98.6) 126 mmHg (60-100); SAMPLE BLOOD; SAO2 99.2 % (95.0-100.0); THB 8.4 g/dL (11.5-17.4)
[2019-08-24 04:41] LABS: MODALITY ROOM AIR
[2019-08-24] MEDS: KEPPRA 500 MG/NS 500 MG/100 ML IVPB IV SCH ×2 (06:11→18:18)
[2019-08-24] MEDS: HUMALOG SUBQ SCH ×4 (06:12→21:23)
[2019-08-24] MEDS: SODIUM CHLORIDE 0.9% INJ SCH (07:43)
[2019-08-24] MEDS: PROTONIX IV SCH (07:43)
[2019-08-24 08:07] LABS: CALCIUM 8.6 mg/dL (8.8-10.2); MAGNESIUM 1.5 mg/dL (1.5-2.7); POTASSIUM 3.6 mmol/L (3.5-5.1)
[2019-08-24] MEDS: D5 1/2 NS 1,000 ML IV SCH (09:45)
[2019-08-24] MEDS: HUMULIN R 100 UNIT in NS 100 ML IV SCH (10:51)
--- NOTE | 2019-08-24 10:59 | PROVIDER PROGRESS NOTE ---
Progress Note Pulmonary additional note: I have seen the case, reviewed the EMR, labs, latest images and other medical teams notes. Also reviewed the SUPERVISOR IN CHARGE notes and signed necessary form(s). I have noted changes in condition if any from yesterday and did orders if needed. Please see also signed progress sheet. Prognosis: Guarded for now Since yesterday, She remained hemodynamically stable but acidotic I reviewed the latest input from Dr. Brady and Dr. Bernabe. I asked medical staff services manager about condition changes and if they have any needs in regard to today conditions. I spent more than 30 minutes in this process.
[2019-08-24 11:19] LABS: CALCIUM 8.7 mg/dL (8.8-10.2); CREATININE 1.1 mg/dL (0.5-0.9); MAGNESIUM 1.5 mg/dL (1.5-2.7); PHOSPHORUS 2.8 mg/dL (2.7-4.5); POTASSIUM 3.8 mmol/L (3.5-5.1)
[2019-08-24] MEDS: 1/2 NS 1,000 ML IV SCH (13:27)
--- NOTE | 2019-08-24 14:04 | PROGRESS NOTE ---
DATE: 08/24/2019 SUBJECTIVE: Ms. Cameron, who has been admitted for diabetic ketoacidosis, has mild pancreatitis. She also has Klebsiella urinary tract infection. The electrolytes are normal. Blood sugar is down. We are going to discontinue the insulin drip and change her IV fluids to half-normal saline. Overall condition is otherwise stable. We will continue to watch her closely. -3 cc: MD Edwin Kline MD
--- NOTE | 2019-08-24 14:41 | GASTROENTEROLOGY CONSULTATION ---
DATE: 08/24/2019 CONSULTING PHYSICIAN: Dr. Brady. REASON FOR CONSULTATION: Acute pancreatitis. HISTORY: This is a 58-year-old white female with significant medical problems including seizure disorders, diabetes and hypothyroidism, has presented with sudden-onset abdominal pain, nausea, vomiting and diarrhea. The patient tells me that her symptoms started 2 to 3 days prior to her admission. She has had no fever or chills, but nausea and vomiting continued. She did not have any hematemesis or coffee-ground emesis. She denied indigestion, heartburn or dysphagia associated with it. She denied melena or bright red blood per rectum but she did have a few loose stools. She has not had any mucus in her stool. On admission, she was found to be in DKA and her amylase and lipase were also elevated. She since then has been treated and is out of DKA now. Her amylase and lipase have started coming down. She is hungry now, she wants to eat. PAST MEDICAL HISTORY: Significant for peptic ulcer disease. She has some gastritis, diabetes, hypothyroidism, seizure disorders. She has had hyperlipidemia, peripheral neuropathy. PAST SURGICAL HISTORY: None. MEDICATION PRIOR TO HOSPITALIZATION: Aspirin, clobazam, gabapentin, hydroxyzine, Vimpat, levetiracetam, Synthroid, metformin, mirtazapine, risperidone, and rosuvastatin. ALLERGIES: No drug allergies. SOCIAL HISTORY: She is single, lives by herself. She does not smoke, does not drink, does not do illicit drugs. FAMILY HISTORY: Noncontributory. REVIEW OF SYSTEMS: As per HPI as above. PHYSICAL EXAMINATION: General: A very pleasant white female. She is lying in bed. She is conscious, alert, appears to be in no distress. Her daughter who is currently visiting from [place] is visiting her. Vital signs: Temperature 98.6 degrees, pulse 72 per minute, breathing 20, blood pressure 126/75. She is 141 pounds. HEENT: Head is atraumatic, normocephalic. Eyes: Conjunctivae is normal. Sclerae anicteric. Nares are patent, no discharge. Mouth: Buccal mucosa is moist. Throat is normal. Neck: Neck is supple. No lymphadenopathy or thyromegaly. Chest: Bilaterally symmetrical. It is moving with respirations. Breath sounds audible bilaterally. No rhonchi or crepitations could be heard. Heart: S1, S2 audible. No murmur could be appreciated. Abdomen: Flat, soft, but mildly tender in the epigastric area. No rebound tenderness. No guarding noted. Bowel sounds are audible. Extremities: No pedal edema, cyanosis, clubbing was noted. Central nervous system: Grossly intact. No sensory or motor deficit. LABORATORY DATA: Reviewed which showed WBC 13.07, hemoglobin 8.9, hematocrit 29.2, MCV 85.4, platelets were 272,000. Sodium 136, potassium 3.8, chloride 105, bicarb is 20, BUN is 15, creatinine 1.1. Glucose 279 which on admission was 521. Transaminases are normal. Amylase on admission was 269, it has come down to 149. Lipase is 556 on admission which has come down to 474. T4 is 2.45, TSH is 0.01. Urinalysis suggestive of UTI. Urine culture grew Klebsiella. IMPRESSION: 1. Nausea, vomiting, diarrhea, secondary to a combination of urinary tract infection as well as acute pancreatitis. Since her admission, her GI symptoms have improved. She is almost out of diabetic ketoacidosis now and she is currently receiving antibiotic for her urinary tract infection. She has been able to tolerate clear liquid diet which is advanced to full liquid diet now. Her numbers are better. As far as the reason for acute pancreatitis, there is nothing significant that would trigger her except for medication. However, I will check triglyceride level to rule out hypertriglyceridemia as a possible cause for her acute pancreatitis. In the meantime, we will recheck her labs, amylase and lipase tomorrow. 2. Anemia. No signs of active bleeding. Her anemia is normocytic, normochromic. It would be appropriate to do iron studies as well as she would need endoscopic evaluation to rule out GI pathology resulting chronic blood loss from GI tract resulting in her anemia, but that can be done as an outpatient. 3. Hyperthyroidism, most likely secondary to medication. However, from GI perspective, not much to add. 4. Rest of medical treatment as per the team. I will continue to follow and depending on her progress, further plans made. The case was discussed with the daughter who was present at the bedside. cc: MD Edwin Hsieh MD
--- NOTE | 2019-08-24 14:51 | GENERAL SURGERY PROGRESS NOTE ---
DATE: 08/24/2019 SUBJECTIVE: The patient is feeling better. Less abdominal pain no nausea vomiting she has had a bowel movement. She is tolerating clear liquids. OBJECTIVE: She is afebrile. Vital signs are stable.General: She is awake, alert, oriented x3. No acute distress. GI soft, nondistended. Minimally tender. LABORATORY: PH 7.4, pCO2 30, PaO2 126, bicarb 20, base deficit -5, lactate 0.6. Electrolytes reviewed and unremarkable. ASSESSMENT AND PLAN: A 58-year-old female with pancreatitis and DKA. She is improving. We will advance her diet. cc: MD Edwin Jalloh MD
[2019-08-24] MEDS: LOVENOX SUBQ SCH (16:39)
[2019-08-24] MEDS: ROCEPHIN 1 GM in NS 50 ML IV SCH (19:33)
[2019-08-25] MEDS: ZOSYN 3.375 GM in NS 50 ML IV SCH ×4 (04:25→22:41)
[2019-08-25 05:07] LABS: ALLEN TEST YES; BE -8.8 mmoll (-3.0-3.0); BLOOD TYPE ARTERIAL; HCO3-(ACT) 18.1 mmoll (20.0-26.0); METHB 0.6 % (0.0-1.5); O2HB 97.2 % (95.0-99.0); PCO2(98.6) 33 mmHg (35-45); PO2(98.6) 109 mmHg (60-100); SAMPLE BLOOD; SAO2 99.2 % (95.0-100.0); THB 9.4 g/dL (11.5-17.4); pH(98.6) 7.31 (7.35-7.45)
[2019-08-25 05:08] LABS: MODALITY ROOM AIR
[2019-08-25] MEDS: KEPPRA 500 MG/NS 500 MG/100 ML IVPB IV SCH ×2 (06:07→17:54)
[2019-08-25] MEDS: HUMALOG SUBQ SCH ×6 (06:33→22:50)
[2019-08-25 06:57] LABS: AMYLASE 71 U/L (20-200); LIPASE 229 U/L (13-60); TRIGLYCERIDES 86 mg/dL (35-135)
[2019-08-25] MEDS: PROTONIX IV SCH (07:20)
[2019-08-25] MEDS: SODIUM CHLORIDE 0.9% INJ SCH (07:20)
[2019-08-25 07:33] LABS: CALCIUM 8.8 mg/dL (8.8-10.2); CREATININE 1.1 mg/dL (0.5-0.9); MAGNESIUM 1.4 mg/dL (1.5-2.7); PHOSPHORUS 3.3 mg/dL (2.7-4.5); POTASSIUM 3.7 mmol/L (3.5-5.1)
--- NOTE | 2019-08-25 07:40 | GENERAL SURGERY PROGRESS NOTE ---
DATE: 08/25/2019 SUBJECTIVE: The patient feels better. She denies abdominal pain, nausea, or vomiting. She is eating. OBJECTIVE: She is afebrile. Vital signs are stable. General: She is awake, alert, and oriented x3. No acute distress. Gastrointestinal: Soft, nontender, nondistended. Laboratory: Amylase 71, lipase 229. Triglycerides 86. ASSESSMENT/PLAN: A 58-year-old female with diabetic ketoacidosis and pancreatitis. Her pancreatitis appears to be much improved. She still remains somewhat acidotic as her pH is 7.3 this morning. Her blood sugars remain in the high 300s. She will likely need Lantus daily in addition to her other insulin requirements. This will be per Dr. Brady. We could check an abdominal ultrasound for any small stones or sludge as a contributing cause to her pancreatitis. cc: MD Edwin Jalloh MD
--- NOTE | 2019-08-25 10:56 | PROVIDER PROGRESS NOTE ---
Progress Note Pulmonary additional note: I have seen the case, reviewed the EMR, labs, latest images and other medical teams notes. Also reviewed the REFINISHER notes and signed necessary form(s). I have noted changes in condition if any from yesterday and did orders. Please see also signed progress sheet. Prognosis: Guarded for now. Since yesterday, She looks and feels ok. Remains acidotic but compensated. I reviewed notes from Sae Lopez and Dr. Blanchard Acute pancreatitis, DKA, UTI. I asked staff scientist about condition changes and if they have any needs in regard to today conditions. I spent 32 minutes in this process.
--- NOTE | 2019-08-25 12:00 | PROGRESS NOTE ---
DATE: 08/25/2019 Ms. Cameron is alert. She was admitted for DKA. Her blood gases done this morning revealed pH 7.31, pCO2 33, PO2 is 109. Blood sugar has been around 300 most of the time. Last blood sugar was 186. Stool was negative for C diff toxin. Urine and blood cultures are negative so far. I am going to put her on 25 units of Lantus insulin daily. According to the daughter, her insulin pump was recalled, and she has not been using it. -2 cc: MD Edwin Kline MD
[2019-08-25] MEDS: 1/2 NS 1,000 ML IV SCH (13:40)
--- NOTE | 2019-08-25 14:26 | GASTROENTEROLOGY PROGRESS NOTE ---
DATE: 08/25/2019 Ms. Cameron is sitting up in the bed, and she is enjoying her lunch. She reports no GI symptoms. Has not had any abdominal pain, nausea, vomiting. Denies any diarrhea. She is tolerating her diet. OBJECTIVE: Vitals: Temperature 98 degrees Fahrenheit, pulse 74, breathing 14, blood pressure 131/72. Abdomen: Soft, nontender, bowel sounds audible. LABORATORIES: Reviewed. Amylase is 71 today. Lipase is 229. IMPRESSION: Abdominal pain, nausea, vomiting. Resolved. Acute pancreatitis, etiology not known. Her triglyceride level was within normal. Her numbers have improved. At this point, no new suggestions. Continue treatment for other medical issues. From GI perspective not much to add. I will follow her peripherally, and I will be available if needed. cc: MD Edwin Hsieh MD
[2019-08-25] MEDS: LOVENOX SUBQ SCH (17:12)
[2019-08-25] MEDS: ROCEPHIN 1 GM in NS 50 ML IV SCH (19:10)
[2019-08-26] MEDS: ZOSYN 3.375 GM in NS 50 ML IV SCH ×4 (04:37→23:10)
[2019-08-26 04:57] LABS: ALLEN TEST YES; BE -7.3 mmoll (-3.0-3.0); BLOOD TYPE ARTERIAL; HCO3-(ACT) 19.2 mmoll (20.0-26.0); METHB 0.9 % (0.0-1.5); MODALITY ROOM AIR; O2(CT) 14.7 mL/dL (15.0-23.0); O2HB 96.7 % (95.0-99.0); PCO2(98.6) 35 mmHg (35-45); PO2(98.6) 102 mmHg (60-100); SAMPLE BLOOD; SAO2 99.2 % (95.0-100.0); THB 10.7 g/dL (11.5-17.4); pH(98.6) 7.32 (7.35-7.45)
[2019-08-26] MEDS: KEPPRA 500 MG/NS 500 MG/100 ML IVPB IV SCH ×2 (05:50→21:03)
[2019-08-26] MEDS: HUMALOG SUBQ SCH ×4 (06:22→21:04)
[2019-08-26] MEDS: PROTONIX IV SCH (06:23)
[2019-08-26 06:25] LABS: BASO# 0.02 X1000 (0.0-0.2); BASO% 0.4 % (0.0-0.8); EOS# 0.08 X1000 (0.0-0.7); EOS% 1.5 % (0.0-10.0); HEMATOCRIT 27.2 % (37.0-47.0); HEMOGLOBIN 8.6 g/dL (12.0-16.0); LYMPH# 1.48 X1000 (1.2-3.4); MCH 25.9 PG (27-31); MCHC 31.6 g/dL (33-37); MCV 81.9 FL (81-99); MONO% 10.9 % (1.7-9.3); MPV 10.9 FL (7.4-10.4); NEUT# 3.31 X1000 (1.4-6.5); NEUT% 60.2 % (42.2-75.2); PLT 237 X1000 (130-400); RBC 3.32 XMIL (4.2-5.4); RDW 15.7 % (11.5-14.5); WBC 5.49 X1000 (4.8-10.8)
[2019-08-26 07:12] LABS: ALB/GLOB RATIO 1.1; ALBUMIN 2.8 g/dL (3.5-5.0); CALCIUM 8.6 mg/dL (8.8-10.2); CREATININE 1.1 mg/dL (0.5-0.9); MAGNESIUM 1.6 mg/dL (1.5-2.7); PHOSPHORUS 3.1 mg/dL (2.7-4.5); POTASSIUM 3.1 mmol/L (3.5-5.1); TOTAL BILIRUBIN 0.15 mg/dL (0.20-1.00); TOTAL PROTEIN 5.4 g/dL (6.3-8.3)
--- NOTE | 2019-08-26 08:05 | PROGRESS NOTE ---
DATE: 08/26/2019 SUBJECTIVE: Ms. Cameron is doing better. The patient is more alert and awake. Answering questions fairly well. The patient is off the insulin drip. She started on Lantus this morning. Her blood sugar is still staying high. No chest pain. No diarrhea, blood, or mucus in the stool. The patient is scheduled to have abdominal ultrasound today. No seizure-type episode. OBJECTIVE: Vital Signs: Her vital signs as noted. Neck: Supple. No JVD. Lungs: Bibasilar crepitation. Heart: S1 and S2 heard. Abdomen: Soft. No distention. Bowel sounds present. Extremities: No cyanosis or clubbing. No acute DVT. SHRINK PIT OPERATOR: Alert, awake, and able to move all 4 limbs. No acute DVT. CONSIDERATION: 1. Diabetic ketoacidosis. Pancreatitis. The patient did have hypotension which was transient. 2. Uncontrolled diabetes mellitus. 3. Hypothyroidism. 4. Labs done this morning did reveal hypokalemia. I am going to check appropriate labs. We will supplement potassium. 5. Continue rest of the treatment. Transfer patient to step-down unit. Watch for hypoglycemia. PLAN: Overall plan discussed with the patient, and she is in agreement. cc: Edwin Brady MD
[2019-08-26] MEDS: LANTUS INSULIN SUBQ SCH (08:11)
[2019-08-26] MEDS: NS + KCL 20 MEQ 1,000 ML IV SCH ×2 (08:11→21:54)
[2019-08-26] MEDS: POTASSIUM CHLORIDE 20 MEQ/SWI 20 MEQ/100 ML IVPB IV SCH ×2 (08:36→10:44)
--- NOTE | 2019-08-26 09:46 | Diag Imaging Result Doc PS360 ---
EXAM: US GB < RUQ (LIMITED) HISTORY: pancreatitis TECHNIQUE: Right upper quadrant ultrasound COMPARISON: CT from 08/23/2019 FINDINGS: No focal pancreatic abnormality. No abdominal aortic aneurysm. Normal inferior vena cava. No focal hepatic abnormality although there may be mild fatty infiltration. The several stones within the gallbladder. The wall is not thickened. The common bile duct measures 6 mm. Normal right kidney. No hydronephrosis. There is a tiny right renal cyst. IMPRESSION: Cholelithiasis Electronically signed by Mike Welch 08/26/2019 9:44 AM
--- NOTE | 2019-08-26 10:24 | PROVIDER PROGRESS NOTE ---
Progress Note Pulmonary additional note: I have seen the case, reviewed the EMR, labs, latest images and other medical teams notes. Also reviewed the GATE KEEPER notes and signed necessary form(s). I have noted changes in condition if any from yesterday and did orders. Please see also signed progress sheet. Prognosis: Guarded for now. Since yesterday, She is less acidotic. I reviewed notes from Dr. Brady Acute pancreatitis, DKA, UTI. More stable I asked staff internist office based only about condition changes and if they have any needs in regard to today conditions. I spent 33 minutes in this process.
--- NOTE | 2019-08-26 10:36 | Diag Imaging Result Doc PS360 ---
EXAM: CHEST-PORTABLE HISTORY: hypoxia TECHNIQUE: Single view COMPARISON: 08/22/2019 FINDINGS: The lungs are well expanded. The heart is not enlarged. The vessels are not distended. There are no infiltrates. No effusion identified. IMPRESSION: Negative exam. Electronically signed by Mike Welch 08/26/2019 10:33 AM
[2019-08-26] MEDS: VIMPAT PO SCH ×2 (13:51→20:40)
--- NOTE | 2019-08-26 14:21 | GASTROENTEROLOGY PROGRESS NOTE ---
DATE: 08/26/2019 SUBJECTIVE: Ms. Cameron is sitting up, just finished her breakfast and tolerated it well. She has not had any abdominal pain, nausea, vomiting. VITAL SIGNS: Temperature 98.5 degrees, pulse 84, breathing 14 blood pressure 140/68. ABDOMEN: Flat, soft, nontender. Bowel sounds are audible. LABORATORIES: Reviewed which showed the lipase has gone up to 504, amylase was not done today. IMPRESSION: Abdominal pain, nausea, vomiting has resolved. She is tolerating diet well. Pancreatitis seems to have resolved symptomatically, but her number had gone up. I will check her amylase again to confirm both had gone up. At this point, since her symptoms are better I would not change anything. Advised to continue to manage her urinary tract infection and other status. Will follow her peripherally and, depending on her progress, further plans made. She is anemic without any signs of active bleeding. She will need endoscopic evaluation down the road, but that can be done as an outpatient. cc: MD Edwin Hsieh MD
[2019-08-26] MEDS: LOVENOX SUBQ SCH (16:50)
--- NOTE | 2019-08-26 17:28 | PROVIDER PROGRESS NOTE ---
Progress Note Dr. Cerna Progress Note/Pulmonary and or critical care We appreciated progress of care, Complications, change in diagnosis, and instructions to patient under direct supervision of Dr. Cerna. Subjective: We note the level of consciousness, bed (chair) position, family presence (if any), level of lethargy, feeling of symptoms, and changes from baseline condition/symptom. The patient feels: better. She is on room air and tolerates well. Vital Signs: We reviewed EMR current values for Pulse rate, Blood pressure, Pulse rate, respiratory rate and Pulse oximetry. Also noted other values and trends if present (e.g. I/O, CVP). Vital Signs 08/25/19 20:00 08/26/19 00:00 08/26/19 04:00 Temperature 98.7 F 98.7 F 98.2 F Pulse Rate 84 80 76 Respiratory Rate 17 13 15 Blood Pressure 152/71 107/51 128/58 O2 Sat by Pulse Oximetry 98 98 98 08/26/19 08:00 08/26/19 12:00 08/26/19 16:00 Temperature 98.5 F 99.4 F 98.8 F Pulse Rate 84 88 78 Respiratory Rate 14 22 15 Blood Pressure 140/68 161/80 148/70 O2 Sat by Pulse Oximetry 98 97 98 Intake & Output 08/25/19 08/26/19 08/26/19 19:59 07:59 19:59 Intake Total 938 / 2224 1286 / 2224 1276 / 1276 Output Total 1400 / 2685 1285 / 2685 600 / 600 Balance -462 / -461 1 / -461 676 / 676 Intake: Intake, IV Amount 168 / 504 336 / 504 546 / 546 Intake, IVPB 50 / 400 350 / 400 250 / 250 Intake, Oral Amount 720 / 1320 600 / 1320 480 / 480 Output: Output, Urine Andrew Amount 1400 / 2685 1285 / 2685 600 / 600 Other: Percent of Meal Consumed 75% 75% Number of Bowel Movements 2 1 2 Bowel Movement Color and Liquid Liquid Soft Character Brown Brown Liquid Brown Objective: We examined the following systems General and HEENT: Trachea Midline. Chest: Reduced Entry. CVS: S1 S2. Abdomen: Non-tender. Soft. Bowel Sounds present. Nondistended. Extremities: No pedal edema/cyanosis/clubbing Neuro: Alert. Weakness present. Labs and Radiology: Reviewed available labs and radiology values available at time of EMR review. Laboratory Results 08/25/19 08/25/19 08/25/19 17:56 20:43 22:43 WBC RBC Hgb Hct MCV MCH MCHC RDW Std Deviation Plt Count MPV Immature Gran % (Auto) Neut % (Auto) Lymph % (Auto) [place] % (Auto) Eos % (Auto) Baso % (Auto) Immature Gran # (Auto) Neut # (Auto) Lymph # (Auto) [place] # (Auto) Eos # (Auto) Baso # (Auto) Specimen Type Sample Site pH pCO2 pO2 HCO3 Base Excess Oxyhemoglobin ABG O2 Sat (Calculated) ABG O2 Saturation ABG Carboxyhemoglobin ABG Methemoglobin [place] Test A-a O2 Difference Total Hemoglobin Lactate Blood Gas Modality FiO2 % Sodium Potassium Chloride Carbon Dioxide Anion Gap BUN Creatinine Estimated GFR/1.73 m2 BUN/Creatinine Ratio Glucose POC Glucose 278 H D 368 H 320 H Calculated Osmolality Calcium Phosphorus Magnesium Total Bilirubin AST ALT Alkaline Phosphatase Total Protein Albumin Globulin Albumin/Globulin Ratio Amylase Lipase 08/26/19 08/26/19 08/26/19 03:43 03:43 03:43 WBC 5.49 RBC 3.32 L Hgb 8.6 L Hct 27.2 L MCV 81.9 MCH 25.9 L MCHC 31.6 L RDW Std Deviation 15.7 H Plt Count 237 MPV 10.9 H Immature Gran % (Auto) 0.0 Neut % (Auto) 60.2 Lymph % (Auto) 27.0 [place] % (Auto) 10.9 H Eos % (Auto) 1.5 Baso % (Auto) 0.4 Immature Gran # (Auto) 0.00 Neut # (Auto) 3.31 Lymph # (Auto) 1.48 [place] # (Auto) 0.60 H Eos # (Auto) 0.08 Baso # (Auto) 0.02 Specimen Type Sample Site pH pCO2 pO2 HCO3 Base Excess Oxyhemoglobin ABG O2 Sat (Calculated) ABG O2 Saturation ABG Carboxyhemoglobin ABG Methemoglobin [place] Test A-a O2 Difference Total Hemoglobin Lactate Blood Gas Modality FiO2 % Sodium 137 Potassium 3.1 L D Chloride 102 Carbon Dioxide 18 L Anion Gap 17 BUN 18 Creatinine 1.1 H Estimated GFR/1.73 m2 51 BUN/Creatinine Ratio 16 Glucose 232 H POC Glucose Calculated Osmolality 283 Calcium 8.6 L Phosphorus 3.1 Magnesium 1.6 Total Bilirubin 0.15 L AST 7 L ALT 12 Alkaline Phosphatase 47 Total Protein 5.4 L Albumin 2.8 L Globulin 2.6 Albumin/Globulin Ratio 1.1 Amylase 127 Lipase 504 H 08/26/19 08/26/19 08/26/19 04:49 06:18 10:15 WBC RBC Hgb Hct MCV MCH MCHC RDW Std Deviation Plt Count MPV Immature Gran % (Auto) Neut % (Auto) Lymph % (Auto) [place] % (Auto) Eos % (Auto) Baso % (Auto) Immature Gran # (Auto) Neut # (Auto) Lymph # (Auto) [place] # (Auto) Eos # (Auto) Baso # (Auto) Specimen Type ARTERIAL Sample Site R RADIAL pH 7.32 L pCO2 35 pO2 102 H HCO3 19.2 L Base Excess -7.3 L Oxyhemoglobin 96.7 ABG O2 Sat (Calculated) 14.7 L ABG O2 Saturation 99.2 ABG Carboxyhemoglobin 1.60 ABG Methemoglobin 0.9 [place] Test YES A-a O2 Difference 4.0 Total Hemoglobin 10.7 L Lactate 1.00 Blood Gas Modality ROOM AIR FiO2 % 21.0 Sodium Potassium Chloride Carbon Dioxide Anion Gap BUN Creatinine Estimated GFR/1.73 m2 BUN/Creatinine Ratio Glucose POC Glucose 290 H 213 H Calculated Osmolality Calcium Phosphorus Magnesium Total Bilirubin AST ALT Alkaline Phosphatase Total Protein Albumin Globulin Albumin/Globulin Ratio Amylase Lipase 08/26/19 15:26 WBC RBC Hgb Hct MCV MCH MCHC RDW Std Deviation Plt Count MPV Immature Gran % (Auto) Neut % (Auto) Lymph % (Auto) [place] % (Auto) Eos % (Auto) Baso % (Auto) Immature Gran # (Auto) Neut # (Auto) Lymph # (Auto) [place] # (Auto) Eos # (Auto) Baso # (Auto) Specimen Type Sample Site pH pCO2 pO2 HCO3 Base Excess Oxyhemoglobin ABG O2 Sat (Calculated) ABG O2 Saturation ABG Carboxyhemoglobin ABG Methemoglobin [place] Test A-a O2 Difference Total Hemoglobin Lactate Blood Gas Modality FiO2 % Sodium Potassium Chloride Carbon Dioxide Anion Gap BUN Creatinine Estimated GFR/1.73 m2 BUN/Creatinine Ratio Glucose POC Glucose 234 H Calculated Osmolality Calcium Phosphorus Magnesium Total Bilirubin AST ALT Alkaline Phosphatase Total Protein Albumin Globulin Albumin/Globulin Ratio Amylase Lipase Dr. Cerna evaluated and additional note below. Evaluation time in minutes: 31 minutes Assessment: Acute pancreatitis DKA UTI Plan Continue current treatment and supportive care per admitting and other teams on the case. Antibiotics Appropriate DVT and GI prophylaxis transfer to [facility] Input was appreciated from Admitting MD and other teams on the case. See additional notes by Dr. Cerna.
[2019-08-26] MEDS: RISPERDAL PO SCH (20:40)
[2019-08-26] MEDS: REMERON PO SCH (20:40)
[2019-08-26] MEDS: PATIENT'S OWN MED PO SCH (20:41)
[2019-08-26] MEDS: NEURONTIN PO SCH (20:41)
[2019-08-26] MEDS: CRESTOR PO SCH (21:04)
[2019-08-27 04:15] LABS: ALLEN TEST YES; BE -3.4 mmoll (-3.0-3.0); BLOOD TYPE ARTERIAL; HCO3-(ACT) 22.3 mmoll (20.0-26.0); METHB 0.6 % (0.0-1.5); O2HB 96.7 % (95.0-99.0); PCO2(98.6) 37 mmHg (35-45); PO2(98.6) 94 mmHg (60-100); SAMPLE BLOOD; SAO2 98.6 % (95.0-100.0); THB 13.2 g/dL (11.5-17.4); pH(98.6) 7.37 (7.35-7.45)
[2019-08-27 04:16] LABS: MODALITY ROOM AIR
[2019-08-27] MEDS: ZOSYN 3.375 GM in NS 50 ML IV SCH ×4 (04:36→23:32)
[2019-08-27] MEDS: PROTONIX IV SCH (06:10)
[2019-08-27] MEDS: SODIUM CHLORIDE 0.9% INJ SCH (06:10)
[2019-08-27] MEDS: HUMALOG SUBQ SCH ×4 (06:48→21:49)
[2019-08-27 07:15] LABS: BASO# 0.01 X1000 (0.0-0.2); BASO% 0.2 % (0.0-0.8); EOS# 0.15 X1000 (0.0-0.7); EOS% 2.8 % (0.0-10.0); HEMATOCRIT 28.6 % (37.0-47.0); HEMOGLOBIN 8.9 g/dL (12.0-16.0); IMM GRAN# 0.02 X1000 (0.0-0.04); IMM GRAN% 0.4 % (0.0-0.5); LYMPH# 1.96 X1000 (1.2-3.4); LYMPH% 36.7 % (20.5-51.1); MCH 25.9 PG (27-31); MCHC 31.1 g/dL (33-37); MCV 83.4 FL (81-99); MONO# 0.52 X1000 (0.11-0.59); MONO% 9.7 % (1.7-9.3); MPV 10.4 FL (7.4-10.4); NEUT# 2.68 X1000 (1.4-6.5); NEUT% 50.2 % (42.2-75.2); PLT 242 X1000 (130-400); RBC 3.43 XMIL (4.2-5.4); RDW 15.9 % (11.5-14.5); WBC 5.34 X1000 (4.8-10.8)
[2019-08-27 07:18] LABS: AGAP 13; ALBUMIN 2.7 g/dL (3.5-5.0); ALKALINE PHOSPHATASE 46 U/L (32-104); AMYLASE 201 U/L (20-200); BUN 16 mg/dL (8-22); CALCIUM 8.5 mg/dL (8.8-10.2); CHLORIDE 106 mmol/L (98-107); COSMO 283; CREATININE 0.9 mg/dL (0.5-0.9); ESTIMATED GFR > 60; GLUCOSE 179 mg/dL (70-104); GOT 8 U/L (10-30); GPT 9 U/L (10-36); MAGNESIUM 1.5 mg/dL (1.5-2.7); POTASSIUM 3.1 mmol/L (3.5-5.1); SODIUM 139 mmol/L (136-145); TCO2 20 mmol/L (25-35); TOTAL BILIRUBIN < 0.15 mg/dL (0.20-1.00); TOTAL PROTEIN 5.4 g/dL (6.3-8.3)
[2019-08-27 07:27] LABS: LIPASE 594 U/L (13-60)
--- NOTE | 2019-08-27 09:59 | PROGRESS NOTE ---
DATE: 08/27/2019 SUBJECTIVE: Ms. Cameron seems to be improving. Tolerating food well. No nausea or vomiting. No high-grade fever or chills. No typical chest pain. Denied any diarrhea. Blood sugar results reviewed. OBJECTIVE: Patient's vital signs noted. Neck: Supple. No JVD. Lungs: Bibasilar crepitations. Heart: S1 and S2 heard. Abdomen: Soft. No distention. Bowel sounds present. Mild epigastric tenderness. No guarding or rigidity. Extremities: No cyanosis or clubbing. No acute DVT. 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 Able to move all 4 limbs. Laboratory Data: Done yesterday reviewed. Today's lab is pending. Patient admitted with UTI, systemic inflammatory response syndrome, mild pancreatitis, uncontrolled diabetes mellitus, diabetes ketoacidosis, history of seizure disorder. Appreciate all consultants' help. Her abdominal ultrasound did reveal gallstone. PLAN: I am going to start physical therapy because of deconditioning, ambulating patient. We are still monitoring her lipase. Dr. Quevedo's recommendations noted. If clinical condition permits, we will plan discharging patient home within a day or two, then consider cholecystectomy as an outpatient. I will check today's labs. Patient did have hypokalemia yesterday. I supplemented potassium. Overall plan discussed with the patient and she is in agreement. Her other problems include bipolar disorder, on risperidone. cc: Edwin Brady MD
[2019-08-27] MEDS: CRESTOR PO SCH (10:01)
[2019-08-27] MEDS: LANTUS INSULIN SUBQ SCH ×2 (10:01→10:07)
[2019-08-27] MEDS: VIMPAT PO SCH ×2 (10:01→21:49)
[2019-08-27] MEDS: PATIENT'S OWN MED PO SCH ×2 (10:01→21:50)
[2019-08-27] MEDS: KEPPRA 500 MG/NS 500 MG/100 ML IVPB IV SCH ×2 (10:07→20:15)
[2019-08-27] MEDS: NS + KCL 20 MEQ 1,000 ML IV SCH (10:07)
--- NOTE | 2019-08-27 10:48 | PROVIDER PROGRESS NOTE ---
Progress Note Pulmonary additional note: I have seen and examine the case, reviewed the EMR, labs, latest images and other medical teams notes. Also reviewed the INCLINOMETER TESTER notes and signed necessary form(s). I have noted changes in condition if any from yesterday and did orders. Please see also signed progress sheet. Prognosis: Guarded for now. Since yesterday, She feels Ok and with gradual improvement. I reviewed notes from Dr. Caitlyn Morgan. Acute pancreatitis, DKA and UTI controlled with management, I spent 33 minutes in this process
--- NOTE | 2019-08-27 11:40 | PROVIDER PROGRESS NOTE ---
Progress Note Dr. Cerna Progress Note/Pulmonary and or critical care We appreciated progress of care, Complications, change in diagnosis, and instructions to patient under direct supervision of Dr. Cerna. Subjective: We note the level of consciousness, bed (chair) position, family presence (if any), level of lethargy, feeling of symptoms, and changes from baseline condition/symptom. The patient feels: better. She is sitting on the chair on room air and tolerates well. She is pending on some gallbladder surgery for the gall stone. Vital Signs: We reviewed EMR current values for Pulse rate, Blood pressure, Pulse rate, respiratory rate and Pulse oximetry. Also noted other values and trends if present (e.g. I/O, CVP). Vital Signs 08/26/19 16:00 08/26/19 16:30 08/26/19 18:07 Temperature 98.8 F Pulse Rate 78 73 Respiratory Rate 15 Blood Pressure 148/70 O2 Sat by Pulse Oximetry 98 98 08/26/19 20:10 08/26/19 21:22 08/26/19 23:35 Temperature 97.8 F 98 F Pulse Rate 72 72 Respiratory Rate 17 18 Blood Pressure 129/66 106/62 O2 Sat by Pulse Oximetry 97 98 97 08/27/19 04:25 08/27/19 07:38 08/27/19 11:53 Temperature 97.4 F L 97.7 F 98.3 F Pulse Rate 64 71 74 Respiratory Rate 16 15 14 Blood Pressure 127/63 138/68 125/68 O2 Sat by Pulse Oximetry 98 100 100 Intake & Output 08/26/19 08/27/19 08/27/19 19:59 07:59 19:59 Intake Total 1516 / 1516 Output Total 975 / 2100 1125 / 2100 600 / 600 Balance 541 / -584 -1125 / -584 -600 / -600 Intake: Intake, IV Amount 546 / 546 Intake, IVPB 250 / 250 Intake, Oral Amount 720 / 720 Output: Output, Urine Void Amount 600 / 600 Output, Urine Andrew Amount 975 / 2100 1125 / 2100 Other: Percent of Meal Consumed 100% 0 Number of Bowel Movements 2 2 Bowel Movement Color and Soft Soft Character Liquid Liquid Brown Brown Objective: We examined the following systems General and HEENT: Trachea Midline. Chest: Even and unlabored. Clear to auscultation bilaterally. CVS: S1 S2. Abdomen: Some tenderness on RUQ. Soft. Bowel Sounds present. Nondistended. Extremities: No pedal edema/cyanosis/clubbing Neuro: Alert. Weakness present. Labs and Radiology: Reviewed available labs and radiology values available at time of EMR review. Laboratory Results 08/26/19 08/26/19 08/27/19 15:26 20:53 04:08 WBC RBC Hgb Hct MCV MCH MCHC RDW Std Deviation Plt Count MPV Immature Gran % (Auto) Neut % (Auto) Lymph % (Auto) [place] % (Auto) Eos % (Auto) Baso % (Auto) Immature Gran # (Auto) Neut # (Auto) Lymph # (Auto) [place] # (Auto) Eos # (Auto) Baso # (Auto) Specimen Type ARTERIAL Sample Site R RADIAL pH 7.37 pCO2 37 pO2 94 HCO3 22.3 Base Excess -3.4 L Oxyhemoglobin 96.7 ABG O2 Sat (Calculated) 18.0 ABG O2 Saturation 98.6 ABG Carboxyhemoglobin 1.30 ABG Methemoglobin 0.6 [place] Test YES A-a O2 Difference 9.0 Total Hemoglobin 13.2 Lactate 0.50 Blood Gas Modality ROOM AIR FiO2 % 21.0 Sodium Potassium Chloride Carbon Dioxide Anion Gap BUN Creatinine Estimated GFR/1.73 m2 BUN/Creatinine Ratio Glucose POC Glucose 234 H 157 H Calculated Osmolality Calcium Magnesium Total Bilirubin AST ALT Alkaline Phosphatase Total Protein Albumin Globulin Albumin/Globulin Ratio Amylase Lipase 08/27/19 08/27/19 08/27/19 05:19 05:19 06:25 WBC 5.34 RBC 3.43 L Hgb 8.9 L Hct 28.6 L MCV 83.4 MCH 25.9 L MCHC 31.1 L RDW Std Deviation 15.9 H Plt Count 242 MPV 10.4 Immature Gran % (Auto) 0.4 Neut % (Auto) 50.2 Lymph % (Auto) 36.7 [place] % (Auto) 9.7 H Eos % (Auto) 2.8 Baso % (Auto) 0.2 Immature Gran # (Auto) 0.02 Neut # (Auto) 2.68 Lymph # (Auto) 1.96 [place] # (Auto) 0.52 Eos # (Auto) 0.15 Baso # (Auto) 0.01 Specimen Type Sample Site pH pCO2 pO2 HCO3 Base Excess Oxyhemoglobin ABG O2 Sat (Calculated) ABG O2 Saturation ABG Carboxyhemoglobin ABG Methemoglobin [place] Test A-a O2 Difference Total Hemoglobin Lactate Blood Gas Modality FiO2 % Sodium 139 Potassium 3.1 L Chloride 106 Carbon Dioxide 20 L Anion Gap 13 BUN 16 Creatinine 0.9 Estimated GFR/1.73 m2 > 60 BUN/Creatinine Ratio 18 Glucose 179 H POC Glucose 165 H Calculated Osmolality 283 Calcium 8.5 L Magnesium 1.5 Total Bilirubin < 0.15 L AST 8 L ALT 9 L Alkaline Phosphatase 46 Total Protein 5.4 L Albumin 2.7 L Globulin 2.7 Albumin/Globulin Ratio 1.0 Amylase 201 H Lipase 594 H 08/27/19 08/27/19 10:58 15:22 WBC RBC Hgb Hct MCV MCH MCHC RDW Std Deviation Plt Count MPV Immature Gran % (Auto) Neut % (Auto) Lymph % (Auto) [place] % (Auto) Eos % (Auto) Baso % (Auto) Immature Gran # (Auto) Neut # (Auto) Lymph # (Auto) [place] # (Auto) Eos # (Auto) Baso # (Auto) Specimen Type Sample Site pH pCO2 pO2 HCO3 Base Excess Oxyhemoglobin ABG O2 Sat (Calculated) ABG O2 Saturation ABG Carboxyhemoglobin ABG Methemoglobin [place] Test A-a O2 Difference Total Hemoglobin Lactate Blood Gas Modality FiO2 % Sodium Potassium Chloride Carbon Dioxide Anion Gap BUN Creatinine Estimated GFR/1.73 m2 BUN/Creatinine Ratio Glucose POC Glucose 297 H D 336 H Calculated Osmolality Calcium Magnesium Total Bilirubin AST ALT Alkaline Phosphatase Total Protein Albumin Globulin Albumin/Globulin Ratio Amylase Lipase Dr. Cerna evaluated and additional note below. Evaluation time in minutes: 32 minutes Assessment: Acute pancreatitis DKA UTI Plan Continue current treatment and supportive care per admitting and other teams on the case. Antibiotics Appropriate DVT and GI prophylaxis transfer to [facility] Input was appreciated from Admitting MD and other teams on the case. See additional notes by Dr. Cerna.
[2019-08-27] MEDS ORDERED: XYLOCAINE-MPF 2% ONE (13:24)
[2019-08-27] MEDS ORDERED: VERSED ONE (13:24)
[2019-08-27] MEDS ORDERED: FENTANYL ONE (13:25)
[2019-08-27] MEDS ORDERED: DIPRIVAN 1% ONE (13:25)
[2019-08-27] MEDS ORDERED: NORCURON ONE (13:25)
[2019-08-27] MEDS ORDERED: SODIUM CHLORIDE 0.9% 10 ML ONE (13:25)
[2019-08-27] MEDS ORDERED: QUELICIN (DOSE) ONE (13:25)
[2019-08-27] MEDS ORDERED: SODIUM CHLORIDE 0.9% ONE (13:34)
[2019-08-27] MEDS ORDERED: SENSORCAINE-MPF 0.5%/EPI 1:200,000 ONE (13:34)
[2019-08-27] MEDS ORDERED: LR 1,000 ML ONE (13:34)
[2019-08-27] MEDS ORDERED: HUMULIN R ONE (15:31)
[2019-08-27] MEDS ORDERED: ALBUMIN 25% ONE (15:39)
--- NOTE | 2019-08-27 15:55 | GENERAL SURGERY PROGRESS NOTE ---
DATE: 08/27/2019 SUBJECTIVE: The patient is sitting up eating breakfast and feels better. She denies abdominal pain, nausea, or vomiting. OBJECTIVE: Vitals: She is afebrile. Vital signs are stable. General: She is awake, alert, oriented x3. No acute distress. CV: Regular rate and rhythm. Respiratory: No work of breathing. Gastrointestinal: Soft. Remains tender in the epigastrium and right upper quadrant without rebound or guarding. LABORATORY: CBC and metabolic profile reviewed. Notable for potassium 3.1. Blood sugar is now below 200. Liver function tests are normal. However, amylase is elevated at 201 and lipase at 594. ABG shows resolution of acidosis. IMAGING: Abdominal ultrasound yesterday revealed cholelithiasis. ASSESSMENT AND PLAN: A 58-year-old female admitted with acute pancreatitis and diabetic ketoacidosis, now with known gallstones. This is likely the source of her pancreatitis. She appears much more stable and ready for cholecystectomy. I have discussed this with her and offered it to her. We went over the risks and benefits including bleeding, infection, injury to surrounding organs such as the bile duct or intestines. She agrees and wished to proceed. We will perform laparoscopic cholecystectomy this afternoon. cc: MD Edwin Jalloh MD
--- NOTE | 2019-08-27 16:55 | Diag Imaging Result Doc PS360 ---
EXAM: OPERATIVE CHOLANGIOGRAM 08/27/2019 HISTORY: cholecystectomy TECHNIQUE: Intraoperative cholangiogram two views COMMENT: There are no definite filling defects and contrast is seen entering the duodenum. IMPRESSION: No evidence of retained stones. Electronically signed by Michael Donnelly 08/27/2019 4:52 PM
[2019-08-27] MEDS ORDERED: ZOFRAN ONE (16:56)
[2019-08-27] MEDS ORDERED: ROBINUL ONE (16:56)
[2019-08-27] MEDS ORDERED: OFIRMEV 1000 MG/ISOTONIC SOLN 1,000 MG/100 ML BOTTLE ONE (16:56)
[2019-08-27] MEDS ORDERED: NEOSTIGMINE ONE (16:56)
--- NOTE | 2019-08-27 17:03 | EKG Report ---
Test Performed on : 08/27/2019 4:58:32 PM Test Reason : intraoperative asystole Blood Pressure : / mmHG Vent. Rate : 064 BPM Atrial Rate : 064 BPM P-R Int : 226 ms QRS Dur : 086 ms QT Int : 412 ms P-R-T Axes : 000 074 051 degrees QTc Int : 425 ms Sinus rhythm. with 1st degree AV block. Otherwise normal ECG When compared with ECG of 23-AUG-2019 04:07, CO interval has increased Vent. rate has decreased BY 70 BPM Confirmed by Sung FLORES, Bernabe Gomez ([id number]) on 08/28/2019 10:20:37 AM
[2019-08-27] MEDS: NORCO-10 PO PRN (18:11)
[2019-08-27] MEDS: NEURONTIN PO SCH (21:49)
[2019-08-27] MEDS: REMERON PO SCH (21:49)
[2019-08-27] MEDS: RISPERDAL PO SCH (21:49)
[2019-08-27] MEDS: LOVENOX SUBQ SCH (21:52)
--- NOTE | 2019-08-27 23:28 | OPERATIVE NOTE ---
PROCEDURE DATE: 08/27/2019 PREOPERATIVE DIAGNOSIS: Gallstone pancreatitis. POSTOPERATIVE DIAGNOSIS: Gallstone pancreatitis. PROCEDURE: Laparoscopic cholecystectomy with operative cholangiogram. SURGEON: Dmitri Bernabe MD. ANESTHESIA: General. BLOOD LOSS: 5 mL. COMPLICATIONS: None apparent. SPECIMENS: Gallbladder. FINDINGS: The gallbladder appeared to be chronically inflamed. The cholangiogram revealed filling of the proximal hepatic radicles and distal common bile duct. There was flow of contrast seen in the duodenum. No filling defects or stenoses were appreciated. TECHNIQUE: The patient was brought to the operating room and placed supine on the table. General anesthesia was induced. She was prepped and draped in usual sterile fashion. Marcaine 0.25% with epinephrine was used to anesthetize our incisions. An 11 mm incision was made above the umbilicus in the midline. The fascia was exposed and incised sharply. Entry into the peritoneal cavity was obtained under direct vision with the Optiview device. Pneumoperitoneum was established. The camera was inserted. There was no evidence of injury to underlying structures. She was placed in reverse Trendelenburg and left rotation. Three 5 mm incision ports were placed across the epigastric right upper quadrant below the costal margin. The dome of the gallbladder was good lifted up superiorly. The triangle of [place] was dissected out with the [place] forceps and hook cautery until the critical view was obtained. The gallbladder-liver junction was seen. There were only 2 structures entering the gallbladder, the cystic duct and cystic artery. The artery was clipped proximally and distally and incised between with scissors. A clip was placed on the distal cystic duct, a ductotomy was made proximal to this with scissors. A 14-gauge Angiocath was passed through the right upper quadrant. The Taut cholangiogram catheter was passed through this into the cystic duct and held in place with a clip. The cholangiogram was performed with findings as noted above. The clip, catheter and Angiocath were removed. Two clips were placed on the proximal cystic duct, it was divided distal to these with scissors. The gallbladder was removed from the liver bed using hook cautery obtaining hemostasis along the way. I brought the gallbladder out through the umbilical port site, desufflated the abdomen and removed the ports. The umbilical fascia was closed with a [id number] 0 Vicryl. The skin was closed with 4-0 subcuticular Biosyn and Steri-Strips. There were no apparent complications. She was awakened in stable condition and transferred to recovery room. cc: MD Edwin Jalloh MD
[2019-08-28] MEDS: 1/2 NS 1,000 ML IV SCH (03:13)
[2019-08-28 04:00] LABS: ALLEN TEST YES; BLOOD TYPE ARTERIAL; HCO3-(ACT) 22.6 mmoll (20.0-26.0); METHB 1.2 % (0.0-1.5); O2(CT) 12.3 mL/dL (15.0-23.0); O2HB 95.4 % (95.0-99.0); PCO2(98.6) 38 mmHg (35-45); PO2(98.6) 83 mmHg (60-100); SAMPLE BLOOD; SAO2 98.1 % (95.0-100.0); THB 9.1 g/dL (11.5-17.4); pH(98.6) 7.37 (7.35-7.45)
[2019-08-28 04:02] LABS: MODALITY ROOM AIR
[2019-08-28] MEDS: NORCO-10 PO PRN ×2 (04:23→16:24)
[2019-08-28] MEDS: HUMALOG SUBQ SCH ×4 (06:00→20:52)
[2019-08-28] MEDS: ZOSYN 3.375 GM in NS 50 ML IV SCH ×4 (06:08→22:17)
[2019-08-28] MEDS: PROTONIX IV SCH (06:08)
[2019-08-28] MEDS: SODIUM CHLORIDE 0.9% INJ SCH (06:08)
[2019-08-28] MEDS: CRESTOR PO SCH (08:09)
[2019-08-28] MEDS: LANTUS INSULIN SUBQ SCH (08:10)
[2019-08-28] MEDS: KEPPRA 500 MG/NS 500 MG/100 ML IVPB IV SCH ×2 (08:10→20:49)
[2019-08-28] MEDS: SYNTHROID PO SCH (08:10)
[2019-08-28] MEDS: PATIENT'S OWN MED PO SCH ×2 (08:19→20:53)
--- NOTE | 2019-08-28 09:02 | PROGRESS NOTE ---
DATE: 08/28/2019 SUBJECTIVE: Ms. Cameron is going better. Does have some abdominal soreness due to surgery. No high-grade fever or chills. The patient had cholecystectomy yesterday, tolerated procedure well. No nausea or vomiting. No high-grade fever or chills. Denied typical chest pain. OBJECTIVE: Vital Signs: Noted. Neck: Supple. No JVD. Lungs: Bilateral good air entry present. Cardiovascular: S1 and S2 heard. Abdomen: Soft. No distention. Bowel sounds present. Mild abdominal soreness. Central nervous system: Alert, awake. Able to move all 4 limbs. CONSIDERATION: 1. Urinary tract infection, clinically doing better. 2. Gallstone pancreatitis status post cholecystectomy. 3. Bipolar disorder. 4. Uncontrolled diabetes mellitus, status post diabetic ketoacidosis. 5. Mood disorder. 6. The patient had history of hypothyroidism. PLAN: Overall patient is doing fair. I am going to continue current treatment. Check appropriate labs tomorrow. If clinical condition permits, we will plan discharging patient home tomorrow. cc: Edwin Brady MD
[2019-08-28] MEDS: VIMPAT PO SCH ×2 (10:13→20:50)
--- NOTE | 2019-08-28 11:53 | PROVIDER PROGRESS NOTE ---
Progress Note Dr. Cerna Progress Note/Pulmonary and or critical care We appreciated progress of care, Complications, change in diagnosis, and instructions to patient under direct supervision of Dr. Cerna. Subjective: We note the level of consciousness, bed (chair) position, family presence (if any), level of lethargy, feeling of symptoms, and changes from baseline condition/symptom. The patient is lying in bed on room air and tolerates well. She appears weak. She c/o some mild pain on the surgical site. She states she is ready to get up and move around. Objective: Vital Signs: We reviewed EMR current values for Pulse rate, Blood pressure, Pulse rate, respiratory rate and Pulse oximetry. Also noted other values and trends if present (e.g. I/O, CVP). Vital Signs 08/27/19 15:23 08/27/19 16:00 08/27/19 16:45 Temperature 98.3 F 97.1 F L Pulse Rate 74 54 L 71 Respiratory Rate 14 18 17 Blood Pressure 125/68 101/55 125/68 Blood Pressure [Right Arm] 132/65 O2 Sat by Pulse Oximetry 98 98 08/27/19 16:55 08/27/19 17:05 08/27/19 17:09 Temperature Pulse Rate 62 60 74 Respiratory Rate 13 13 Blood Pressure 125/68 Blood Pressure [Right Arm] 122/68 120/61 O2 Sat by Pulse Oximetry 98 97 08/27/19 17:15 08/27/19 17:25 08/27/19 17:54 Temperature Pulse Rate 69 55 L 56 L Respiratory Rate 21 13 Blood Pressure 101/55 Blood Pressure [Right Arm] 119/63 111/61 O2 Sat by Pulse Oximetry 97 97 97 08/27/19 19:55 08/27/19 21:37 08/27/19 23:37 Temperature 98.1 F 99.1 F Pulse Rate 74 73 Respiratory Rate 16 16 Blood Pressure 117/68 123/68 Blood Pressure [Right Arm] O2 Sat by Pulse Oximetry 97 98 98 08/28/19 03:45 08/28/19 07:57 Temperature 98.1 F 97.7 F Pulse Rate 74 80 Respiratory Rate 19 16 Blood Pressure 122/75 121/59 Blood Pressure [Right Arm] O2 Sat by Pulse Oximetry 98 98 Intake & Output 08/27/19 08/28/19 08/28/19 19:59 07:59 19:59 Intake Total 2415 / 4176 1761 / 4176 480 / 480 Output Total 980 / 2630 1650 / 2630 1000 / 1000 Balance 1435 / 1546 111 / 1546 -520 / -520 Intake: Intake, IV Amount 865 / 1706 841 / 1706 Intake, IVPB 250 / 450 200 / 450 OR IV Intake 1300 / 1300 colloid 300 / 300 lr 1000 / 1000 Intake, Oral Amount 720 / 720 480 / 480 Output: Output, Urine Void Amount 600 / 600 Output, Urine Andrew Amount 375 / 2025 1650 / 2025 1000 / 1000 Output, Estimated Blood Loss 5 / 5 Amount Other: Percent of Meal Consumed 0 75% Number of Bowel Movements 2 Bowel Movement Color and Soft Character Liquid Brown Physical Examination: General: Lying in bed with no acute distress noted. HEENT: No masses. Trachea Midline. Mucosa pink and moist. Chest: Even and unlabored, but shallow. Clear to auscultation bilaterally. CVS: Regular rate and rhythm. GI: Some RUQ tenderness. Soft. Bowel sounds present. Nondistended. 1-2cm surgical incision above the umbilicus with no liquid drainage noted. Extremities: No pedal edema. No cyanosis. No clubbing. Neuro: A/O x 3. Weakness present. Labs and Radiology: Reviewed available labs and radiology values available at time of EMR review. Laboratory Results 08/27/19 08/27/19 08/27/19 15:22 16:55 18:06 Specimen Type Sample Site pH pCO2 pO2 HCO3 Base Excess Oxyhemoglobin ABG O2 Sat (Calculated) ABG O2 Saturation ABG Carboxyhemoglobin ABG Methemoglobin [place]khar Test A-a O2 Difference Total Hemoglobin Lactate Blood Gas Modality FiO2 % POC Glucose 336 H 308 H 308 H 08/27/19 08/28/19 08/28/19 21:43 03:50 06:03 Specimen Type ARTERIAL Sample Site R RADIAL pH 7.37 pCO2 38 pO2 83 HCO3 22.6 Base Excess -3.0 Oxyhemoglobin 95.4 ABG O2 Sat (Calculated) 12.3 L ABG O2 Saturation 98.1 ABG Carboxyhemoglobin 1.60 ABG Methemoglobin 1.2 Shekhar Test YES A-a O2 Difference 19.0 Total Hemoglobin 9.1 L Lactate 0.50 Blood Gas Modality ROOM AIR FiO2 % 21.0 POC Glucose 174 H 127 H 08/28/19 10:37 Specimen Type Sample Site pH pCO2 pO2 HCO3 Base Excess Oxyhemoglobin ABG O2 Sat (Calculated) ABG O2 Saturation ABG Carboxyhemoglobin ABG Methemoglobin [place]khar Test A-a O2 Difference Total Hemoglobin Lactate Blood Gas Modality FiO2 % POC Glucose [address] Cerna evaluated and additional note below. Evaluation time in minutes: 33 minutes. Assessment: Acute pancreatitis, mild with cholelithiasis. S/P intraoperative cholangiogram on 08/27/2019. Systemic inflammatory response syndrome DKA UTI Plan: Continue current treatment and supportive care per admitting and other teams on the case. Antibiotics Appropriate DVT and GI prophylaxis. Input was appreciated from Admitting MD and other teams on the case. See additional notes of Dr. Cerna.
--- NOTE | 2019-08-28 19:39 | GENERAL SURGERY PROGRESS NOTE ---
DATE: 08/28/2019 SUBJECTIVE: The patient is doing okay. No acute events overnight. She is tolerating her diet. No nausea or vomiting. OBJECTIVE: She is afebrile. Vital signs are stable. Generally she is awake, alert and oriented x3, in no acute distress. GI: Soft, nondistended, appropriately tender. Incisional dressings are clean and dry. LABORATORY DATA: Her ABG today was normal. ASSESSMENT AND PLAN: A 58-year-old female postoperative day 1 laparoscopic cholecystectomy. She is doing okay from my standpoint. She is weak, however, and deconditioned. She has not been walking since admission, so Physical Therapy has been consulted. cc: MD Edwin Jalloh MD
[2019-08-28] MEDS: REMERON PO SCH (20:49)
[2019-08-28] MEDS: NEURONTIN PO SCH (20:49)
[2019-08-28] MEDS: RISPERDAL PO SCH (20:49)
[2019-08-28] MEDS: LOVENOX SUBQ SCH (20:50)
--- NOTE | 2019-08-28 21:09 | GASTROENTEROLOGY PROGRESS NOTE ---
DATE: 08/28/2019 SUBJECTIVE: Patient states she is feeling a little better. She is status post laparoscopic cholecystectomy on 08/27/2019, by Dr. Bernabe. Operative cholangiogram during the surgery showed no definite filling defects and contrast was seen entering the duodenum. Patient has tolerated a diet. OBJECTIVE: Vital Signs: Temperature 97.7 degrees, pulse 80, respirations 16, blood pressure 120/59. General: Patient is awake and alert, in no acute distress. Abdomen: Tender, postoperative. Otherwise, laparoscopic incisions look good. LABORATORY: From 08/27/2019: Hematology, WBC 5.34, hemoglobin 8.9, hematocrit 28.6, MCV 83.4, platelets 242,000. Chemistry, sodium 139, potassium 3.1, chloride 106, CO2 of 20, BUN 16, creatinine 0.9, glucose 179. Total bilirubin less than 0.15, AST 8, ALT 9, alkaline phosphatase 46. Amylase 201, lipase 594. ASSESSMENT: 1. Gallstone pancreatitis, status post cholecystectomy. 2. Anemia. We will continue to follow. Would recommend she follow up with us as an outpatient for evaluation of her anemia. 3. Urinary tract infection. On antibiotics. 4. History of diabetic ketoacidosis. PLAN: Continue current medications and management. Would recommend repeating her lab work tomorrow. Recommend patient follow up with us as an outpatient for further evaluation of anemia. Intraoperative cholangiogram during laparoscopic cholecystectomy did not show filling defects. Will continue to follow and further plans will be made according to her progress. I have discussed this case with Dr. Quevedo. Dictated by MERCEDES Gongora for Larry Quevedo MD cc: MERCEDES Mcfarland MD Bharat K. Vakharia, MD
[2019-08-29] MEDS: ZOSYN 3.375 GM in NS 50 ML IV SCH ×4 (05:47→23:01)
[2019-08-29] MEDS: SYNTHROID PO SCH ×2 (05:48→06:10)
[2019-08-29] MEDS: SODIUM CHLORIDE 0.9% INJ SCH (05:49)
[2019-08-29] MEDS: PROTONIX IV SCH ×2 (05:49→06:10)
[2019-08-29] MEDS: 1/2 NS 1,000 ML IV SCH (05:50)
[2019-08-29 06:03] LABS: BASO# 0.02 X1000 (0.0-0.2); BASO% 0.3 % (0.0-0.8); EOS# 0.19 X1000 (0.0-0.7); EOS% 2.7 % (0.0-10.0); HEMATOCRIT 28.4 % (37.0-47.0); HEMOGLOBIN 8.9 g/dL (12.0-16.0); LYMPH# 2.13 X1000 (1.2-3.4); MCH 26.3 PG (27-31); MCHC 31.3 g/dL (33-37); MONO% 9.9 % (1.7-9.3); MPV 10.1 FL (7.4-10.4); NEUT# 4.05 X1000 (1.4-6.5); NEUT% 57.1 % (42.2-75.2); PLT 309 X1000 (130-400); RBC 3.38 XMIL (4.2-5.4); WBC 7.09 X1000 (4.8-10.8)
[2019-08-29] MEDS: HUMALOG SUBQ SCH ×4 (06:09→21:18)
[2019-08-29 06:37] LABS: AGAP 8; ALBUMIN 2.7 g/dL (3.5-5.0); ALKALINE PHOSPHATASE 43 U/L (32-104); BUN 11 mg/dL (8-22); CHLORIDE 108 mmol/L (98-107); COSMO 285; CREATININE 0.9 mg/dL (0.5-0.9); ESTIMATED GFR > 60; GLUCOSE 80 mg/dL (70-104); GOT 13 U/L (10-30); GPT 14 U/L (10-36); LIPASE 240 U/L (13-60); MAGNESIUM 1.6 mg/dL (1.5-2.7); PHOSPHORUS 3.1 mg/dL (2.7-4.5); POTASSIUM 2.8 mmol/L (3.5-5.1); SODIUM 144 mmol/L (136-145); TCO2 28 mmol/L (25-35); TOTAL BILIRUBIN < 0.15 mg/dL (0.20-1.00); TOTAL PROTEIN 5.5 g/dL (6.3-8.3)
[2019-08-29] MEDS ORDERED: MAGNESIUM SULFATE 2 GM/S.W.I. 2 GM/50 ML IVPB IV ONE (06:42)
[2019-08-29] MEDS ORDERED: KLOR-CON PO ONE (06:43)
[2019-08-29] MEDS: KEPPRA 500 MG/NS 500 MG/100 ML IVPB IV SCH ×2 (07:33→21:18)
[2019-08-29] MEDS: CRESTOR PO SCH (08:54)
[2019-08-29] MEDS: POTASSIUM CHLORIDE 20 MEQ/SWI 20 MEQ/100 ML IVPB IV SCH ×2 (08:54→11:36)
[2019-08-29] MEDS: MBX SOLUTION MT PRN (08:55)
--- NOTE | 2019-08-29 08:56 | PROGRESS NOTE ---
DATE: 08/29/2019 SUBJECTIVE: Ms. Cameron is doing fair. Oral intake is fair. No nausea or vomiting. Denied any fever or chills. Blood sugar this morning was low, 68. Denied any chest pain. The patient was able to ambulate well yesterday with physical therapy. OBJECTIVE: Her vital signs noted. Neck: Supple. No JVD. Lungs: Bilateral good air entry present. CVS: S1 and S2 heard. Abdomen: Soft, nontender. Bowel sounds present. Mild soreness due to surgery. Extremities: No cyanosis, clubbing. No acute DVT. 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 Able to move all 4 limbs. Overall, patient is doing better. I am going to transfer her to regular telemetry bed. I am going to check today's labs. The patient is going to have outpatient workup for her anemia. Continue rest of the treatment. Appreciate consultants' help managing this patient. Her lab done today did reveal hypokalemia. I will supplement potassium. Her magnesium was also low. I am going to give her magnesium. Her lipase went down to 240. Patient had gallstone pancreatitis. The patient had a cholecystectomy, history of diabetes, hypothyroidism, hypokalemia, low-normal magnesium. cc: Edwin Brady MD
[2019-08-29] MEDS: PATIENT'S OWN MED PO SCH ×2 (09:01→21:20)
[2019-08-29] MEDS: VIMPAT PO SCH ×2 (09:01→21:19)
[2019-08-29] MEDS: LANTUS INSULIN SUBQ SCH (09:01)
--- NOTE | 2019-08-29 16:31 | PROVIDER PROGRESS NOTE ---
Progress Note Dr. Cerna Progress Note/Pulmonary and or critical care We appreciated progress of care, Complications, change in diagnosis, and instructions to patient under direct supervision of Dr. Cerna. Subjective: We note the level of consciousness, bed (chair) position, family presence (if any), level of lethargy, feeling of symptoms, and changes from baseline condition/symptom. The patient is lying in bed on room air and tolerates well. She appears weak. She c/o gastric tenderness. She is eager to get up and move around. Objective: Vital Signs: We reviewed EMR current values for Pulse rate, Blood pressure, Pulse rate, respiratory rate and Pulse oximetry. Also noted other values and trends if present (e.g. I/O, CVP). Vital Signs 08/28/19 19:23 08/28/19 20:12 08/28/19 23:43 Temperature 97.7 F 98.0 F Pulse Rate 88 80 Respiratory Rate 17 18 Blood Pressure 104/52 109/53 O2 Sat by Pulse Oximetry 97 98 97 08/29/19 03:40 08/29/19 07:41 08/29/19 08:14 Temperature 97.7 F 97.7 F Pulse Rate 73 70 Respiratory Rate 17 12 Blood Pressure 114/56 114/54 O2 Sat by Pulse Oximetry 97 96 100 08/29/19 10:00 08/29/19 12:11 Temperature Pulse Rate 89 77 Respiratory Rate 16 16 Blood Pressure 133/67 135/71 O2 Sat by Pulse Oximetry 100 99 Intake & Output 08/28/19 08/29/19 08/29/19 19:59 07:59 19:59 Intake Total 2007 109 / 310 1486 / 1486 Output Total 1000 / 1500 500 / 1500 1000 / 1000 Balance 1008 / 1602 594 / 1602 486 / 486 Intake: Intake, IV Amount 418 / 922 504 / 922 106 / 106 Intake, IVPB 150 / 350 200 / 350 100 / 100 Intake, Oral Amount 1440 / 1830 390 / 1830 1280 / 1280 Output: Output, Urine Andrew Amount 1000 / 1500 500 / 1500 1000 / 1000 Other: Percent of Meal Consumed 75% 75% Number of Bowel Movements 0 1 Bowel Movement Color and Formed Character Brown Physical Examination: General: Lying in bed with no acute distress noted. HEENT: No masses. Trachea Midline. Mucosa pink and moist. Chest: Even and unlabored, but shallow. Clear to auscultation bilaterally. CVS: Regular rate and rhythm. GI: Epigastric tenderness. Soft. Bowel sounds present. Nondistended. 1-2cm surgical incision above the umbilicus with no liquid drainage noted. Extremities: No pedal edema. No cyanosis. No clubbing. Neuro: A/O x 3. Weakness present. Labs and Radiology: Reviewed available labs and radiology values available at time of EMR review. Laboratory Results 08/28/19 08/29/19 08/29/19 19:27 04:51 04:51 WBC 7.09 RBC 3.38 L Hgb 8.9 L Hct 28.4 L MCV 84.0 MCH 26.3 L MCHC 31.3 L RDW Std Deviation 16.0 H Plt Count 309 MPV 10.1 Immature Gran % (Auto) 0.0 Neut % (Auto) 57.1 Lymph % (Auto) 30.0 [place] % (Auto) 9.9 H Eos % (Auto) 2.7 Baso % (Auto) 0.3 Immature Gran # (Auto) 0.00 Neut # (Auto) 4.05 Lymph # (Auto) 2.13 [place] # (Auto) 0.70 H Eos # (Auto) 0.19 Baso # (Auto) 0.02 Sodium 144 Potassium 2.8 L Chloride 108 H Carbon Dioxide 28 Anion Gap 8 BUN 11 Creatinine 0.9 Estimated GFR/1.73 m2 > 60 BUN/Creatinine Ratio 12 Glucose 80 D POC Glucose 211 H Calculated Osmolality 285 Calcium 9.0 Phosphorus 3.1 Magnesium 1.6 Total Bilirubin < 0.15 L AST 13 ALT 14 Alkaline Phosphatase 43 Total Protein 5.5 L Albumin 2.7 L Globulin 2.8 Albumin/Globulin Ratio 1.0 Lipase 240 H 08/29/19 08/29/19 05:51 12:51 WBC RBC Hgb Hct MCV MCH MCHC RDW Std Deviation Plt Count MPV Immature Gran % (Auto) Neut % (Auto) Lymph % (Auto) [place] % (Auto) Eos % (Auto) Baso % (Auto) Immature Gran # (Auto) Neut # (Auto) Lymph # (Auto) [place] # (Auto) Eos # (Auto) Baso # (Auto) Sodium Potassium Chloride Carbon Dioxide Anion Gap BUN Creatinine Estimated GFR/1.73 m2 BUN/Creatinine Ratio Glucose POC Glucose 68 L D 316 H D Calculated Osmolality Calcium Phosphorus Magnesium Total Bilirubin AST ALT Alkaline Phosphatase Total Protein Albumin Globulin Albumin/Globulin Ratio Lipase Dr. Cerna evaluated and additional note below. Evaluation time in minutes: 34 minutes. Assessment: Acute pancreatitis, mild with cholelithiasis. S/P intraoperative cholangiogram on 08/27/2019. Systemic inflammatory response syndrome DKA UTI Plan: Continue current treatment and supportive care per admitting and other teams on the case. Antibiotics Appropriate DVT and GI prophylaxis. Input was appreciated from Admitting MD and other teams on the case. See additional notes of Dr. Cerna.
[2019-08-29] MEDS: REMERON PO SCH (21:18)
[2019-08-29] MEDS: RISPERDAL PO SCH (21:18)
[2019-08-29] MEDS: LOVENOX SUBQ SCH (21:18)
[2019-08-29] MEDS: NEURONTIN PO SCH (21:19)
--- NOTE | 2019-08-29 22:47 | GENERAL SURGERY PROGRESS NOTE ---
DATE: 08/29/2019 SUBJECTIVE: The patient is doing well. No new complaints. OBJECTIVE: She is afebrile. Vital signs are stable.General: She is awake, alert, oriented x3. No acute distress. GI: Soft nondistended. Minimally tender. Incision is clean, dry, intact. LABORATORY: CBC and metabolic profile reviewed and notable for somewhat volatile blood sugars. Potassium is also 2.8. PATHOLOGY: Her gallbladder showed chronic cholecystitis. ASSESSMENT AND PLAN: A 58-year-old female status post laparoscopic cholecystectomy. She is recovering uneventfully and can be discharged home soon. She is getting a potassium supplement today and magnesium supplementation. Her lipase is also improved down to 240 today. She can follow up with me in 2 weeks. cc: MD Edwin Jalloh MD
[2019-08-30] MEDS: ZOSYN 3.375 GM in NS 50 ML IV SCH (04:19)
[2019-08-30 05:00] LABS: ALLEN TEST YES; BE 4.9 mmoll (-3.0-3.0); BLOOD TYPE ARTERIAL; HCO3-(ACT) 28.7 mmoll (20.0-26.0); METHB 1.8 % (0.0-1.5); O2(CT) 12.8 mL/dL (15.0-23.0); PCO2(98.6) 41 mmHg (35-45); PO2(98.6) 137 mmHg (60-100); SAMPLE BLOOD; SAO2 98.7 % (95.0-100.0); THB 9.3 g/dL (11.5-17.4); pH(98.6) 7.46 (7.35-7.45)
[2019-08-30 05:01] LABS: MODALITY ROOM AIR
[2019-08-30 06:50] LABS: BASO# 0.02 X1000 (0.0-0.2); BASO% 0.4 % (0.0-0.8); EOS# 0.15 X1000 (0.0-0.7); EOS% 2.9 % (0.0-10.0); HEMOGLOBIN 8.7 g/dL (12.0-16.0); IMM GRAN# 0.03 X1000 (0.0-0.04); IMM GRAN% 0.6 % (0.0-0.5); LYMPH# 1.37 X1000 (1.2-3.4); LYMPH% 26.1 % (20.5-51.1); MCH 26.1 PG (27-31); MCHC 31.1 g/dL (33-37); MCV 84.1 FL (81-99); MONO# 0.63 X1000 (0.11-0.59); MPV 9.5 FL (7.4-10.4); NEUT# 3.05 X1000 (1.4-6.5); PLT 331 X1000 (130-400); RBC 3.33 XMIL (4.2-5.4); RDW 16.1 % (11.5-14.5); WBC 5.25 X1000 (4.8-10.8)
[2019-08-30] MEDS: PROTONIX IV SCH (06:52)
[2019-08-30] MEDS: HUMALOG SUBQ SCH (06:57)
[2019-08-30] MEDS ORDERED: SYNTHROID PO SCH (07:00)
[2019-08-30 07:02] LABS: AGAP 10; ALBUMIN 2.7 g/dL (3.5-5.0); ALKALINE PHOSPHATASE 46 U/L (32-104); BUN 9 mg/dL (8-22); CALCIUM 8.7 mg/dL (8.8-10.2); CHLORIDE 104 mmol/L (98-107); COSMO 279; CREATININE 0.8 mg/dL (0.5-0.9); ESTIMATED GFR > 60; GLUCOSE 108 mg/dL (70-104); GOT 15 U/L (10-30); GPT 17 U/L (10-36); POTASSIUM 3.6 mmol/L (3.5-5.1); SODIUM 140 mmol/L (136-145); TCO2 26 mmol/L (25-35); TOTAL BILIRUBIN < 0.15 mg/dL (0.20-1.00); TOTAL PROTEIN 5.5 g/dL (6.3-8.3)
[2019-08-30] MEDS ORDERED: KLOR-CON PO ONE (07:20)
[2019-08-30] MEDS: CRESTOR PO SCH (07:58)
[2019-08-30] MEDS: MBX SOLUTION MT PRN (07:58)
[2019-08-30] MEDS: PATIENT'S OWN MED PO SCH (08:00)
[2019-08-30] MEDS: VIMPAT PO SCH (08:09)
[2019-08-30] MEDS ORDERED: KEPPRA PO SCH (09:00)
[2019-08-30] MEDS ORDERED: LANTUS INSULIN SUBQ SCH (09:00)
[2019-08-30 11:13] VITALS: BP 121/68
--- NOTE | 2019-09-04 17:51 | DISCHARGE SUMMARY ---
ADMISSION DATE: 08/22/2019 DISCHARGE DATE: 08/30/2019 FINAL DISCHARGE DIAGNOSES: 1. Diabetic ketoacidosis. 2. Cystitis. 3. Gastroenteritis. 4. Hypothyroidism. 5. Pancreatitis. 6. Chronic cholecystitis and gallstones. 7. Metabolic encephalopathy. HISTORY OF PRESENT ILLNESS: Ms. Cameron is a 58-year-old white female patient admitted with altered mental status. The patient was weak and lethargic. I evaluated the patient in the office and admitted her for further care. The rest of the information as per admission history and physical. The patient's oral intake was poor. There was question about compliance to diabetic medication. HOSPITAL COURSE: Patient was admitted to ICU. She was started on insulin drip. The patient was given IV fluids and IV antibiotics, symptomatic treatment. Her clinical condition gradually improved. The patient also found to have acute pancreatitis. The patient had surgical consult done because there was question about ischemic bowel. Her clinical condition improved. The patient was transferred to step-down unit. Her insulin drip discontinued. The patient was started on long-acting insulin, and then sliding-scale insulin as per Accu-Chek. The patient's urine culture grew Klebsiella pneumoniae. Blood cultures were negative. The patient had some diarrhea. We did stool workup and it was negative. We did critical care consult with Dr. Cerna because initially the patient was hypotensive and tachycardic. The patient was given pressor support along with IV fluid. I did entertain the possibility of systemic inflammatory response syndrome. The patient had abdominal ultrasound done. Patient found to have gallstone. Her HIDA scan was abnormal. The patient underwent cholecystectomy. She tolerated the procedure well. Her pancreatitis improved. The patient had a GI consult done. Overall, the patient received maximum benefit of hospitalization. Her mental status improved, and I decided to discharge her on 08/30 under stable condition. Discharge medication and plan discussed at length with the patient. The patient did have hypokalemia, and it was treated appropriately. Patient was instructed to have follow up with me in a week. Take medicine regularly. Monitor Accu-Chek at home. The patient did not want to go with the insulin pump so I gave her Lantus insulin and sliding scale insulin. We also got her home health. The patient will do physical therapy. Follow up with surgeon as scheduled. Monitor blood pressure and Accu-Chek at home. Discharge medicine as per separate sheet. Overall discharge condition satisfactory. DISCHARGE EXAMINATION: Vital Signs: As noted. Neck: Supple. No JVD. Lungs: Bilateral good air entry present. CVS: S1 and S2 heard. Abdomen: Soft and nontender. Bowel sounds present. 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 DIAGNOSTIC: The patient had chest x-ray done on 08/26 which was benign. Abdominal ultrasound did reveal cholelithiasis. CT scan of abdomen and pelvis. Mild constipation. No evidence of acute disease. The gallbladder pathology revealed chronic cholecystitis. Her lipase was elevated, but after cholecystectomy it came down. The last BUN was 9 and creatinine 0.8. Initial lipase was 504. It went up to 594. The patient did have a small acetone. DISCHARGE INSTRUCTIONS: Overall discharge plan discussed at length with the patient, and she is in agreement. cc: Edwin Brady MD
--- NOTE | 2019-09-18 21:31 | DISCHARGE SUMMARY ---
ADMISSION DATE: 08/22/2019 DISCHARGE DATE: 08/30/2019 ADDENDUM: Ms. Cameron presented with fever, chills and at times low blood pressure. The patient did have a UTI and leukocytosis. Her presentation is suggestive of systemic inflammatory response syndrome, most likely due to cystitis and UTI. cc: Edwin Brady MD
== END 2019-08-30 11:19 | disposition home or self-care (01) | DRG 417 ==
LOC: DIRADM → ICU 07:26 → 2N 08-26 17:30 → 4N 08-29 10:02
PROVIDERS: ADMIT Internal Medicine; ATTEND Internal Medicine